=== PATIENT | male | born 1950 | race Caucasian/White ===

== ENCOUNTER 2018-10-08 12:12 | Outpatient (CLI) | payer MEDICARE, OTHER ==
[~2018-10-08] VITALS: Ht 185.4 cm; Wt 92.7 kg
--- NOTE | ~2018-10-08 | HEMODYNAMI ---
PATIENT:EMANI NICOLAS MEDICAL RECORD: [id number] : 52 LOCATION:[facility] ADMISSION DATE: 10/08/18 Generatedon:10/08/201815:56 Patient name: EMANI NICOLAS Patient #: [id number] SSN: DO B: 1950 Date of study: 10/08/2018 Page: Of Hemodynamic Procedure Report Patient Data Patient Demographics Procedure consent was obtained First Name: EMANI Gender: Male Last Name: MARIA ISABEL : 1950 [facility] Initial: L Age: 68 year(s) Patient #: [id number] Race: Unknown Additional ID: [id number] Contact details Address: [address] [place] [address] [address] State: [place] City: [place] Zip code: [address] Past Medical History Allergies: No known allergies Admission Admission Data Admission Date: 10/08/2018 Admission Time: 12:12 Lab Results Lab Result Date: 10/08/2018 Lab Result Time: 0:00 Biochemistry Name Units Result Min Max BUN mg/dl 9 --(*---)-- 7 18 Creatinine mg/dl 1 --(--*-)-- 0.6 1.3 eGFR ml/min 79.24116 *-(----)-- 90 120 NONAFRICAN CBC Name Units Result Min Max Hematocrit % 39.1 -*(----)-- 42 54 Hemoglobin g/dl 13.2 -*(----)-- 13.5 17.5 Procedure Procedure Types Cath Procedure Diagnostic Procedure LHC LHC w/Coronaries Aortic Root Angiography Procedure Description Procedure Date Procedure Date: 10/08/2018 Procedure Start Time: 15:36 Procedure End Time: 15:49 Procedure Staff Name Function Delano Rebolledo MD Performing Physician Willard Greenwood RT Monitor Yoselyn Hurtado RT Scrub hCitra Gaming RN Nurse Procedure Data Cath Procedure Fluoroscopy Diagnostic fluoroscopy Total fluoroscopy Time: 2.6 time: 2.6 min min Diagnostic fluoroscopy Total fluoroscopy dose: 720 dose: 720 mGy mGy Contrast Material Contrast Material Type Amount (ml) Isovue 370 74 Entry Location Entry Primary Successful Side Size Upsize Upsize Entry Closure Succes sful Closure Location (Fr) 1 (Fr) 2 (Fr) Remarks Device Remarks Femoral Right 5 Fr Exoseal artery Diagnostic catheters Device Type Used For End Catheter Placement MULTIPACK JL 4.0 5Fr Left Coronary catheter Angiography MULTIPACK 3DRC 5Fr Right Coronary catheter Angiography DIAGNOSTIC JL 5 5Fr Left Coronary catheter ([id number]) Angiography MULTIPACK Pigtail 5 Fr LV Angiography catheter Procedure Complications No complications Procedure Medications Medication Administration Route Dosage 0.9% NaCl I.V. 100 ml/hr Oxygen etCO2 Nasal cannula 2 l/min Lidocaine 2% added to field 20 Heparin Flush Bag added to field 2 bags (1000units/500ml NS) Versed I.V. 2 mg Fentanyl I.V. 50 mcg Hemodynamics Rest HGB: 13.2 (g/dl) Heart Rate: 0 (bpm) Pressure Samples Time Site Value (mmHg) Purpose Heart Use Rate(bpm) 15:46 LV 129/1,15 EDP 75 Gradients Valve Time Site Site Mean SEP/DFP Peak To Heart Use 1 2 (mmHg) (sec/min) Peak Rate (mmHg) (bpm) Aortic 15:46 LV AO 75 Snapshots Pre Cath Intra NCS Post Cath Vital Signs Time Heart Resp SPO2 etCO2 NIBP (mmHg) Rhythm Pain Sedation Rate (ipm) (%) (mmHg) Status Level (bpm) 15:22:21 76 11 97 33.8 Measuring NSR 0 (11) 10(A) , No pain 15:22:46 74 12 98 36 151/98(134) NSR 0 (11) 10(A) , No pain 15:27:04 70 15 98 24 137/78(111) NSR 0 (11) 10(A) , No pain 15:31:20 67 14 98 21.8 125/75(99) NSR 0 (11) 10(A) , No pain 15:35:36 65 17 98 22.5 133/73(108) NSR 0 (11) 10(A) , No pain 15:39:48 75 16 99 24 120/72(95) NSR 0 (11) 9(A) , No pain 15:43:59 67 16 98 23.3 125/72(103) NSR 0 (11) 9(A) , No pain 15:48:12 73 18 97 27 120/78(97) NSR 0 (11) 10(A) , No pain Medications Time Medication Route Dose Verified Delivered Reason Notes Eff ectiveness by by 15:22:13 0.9% NaCl I.V. 100 Delano Chitra used for ml/hr [employer] training mgr 15:22:20 Oxygen etCO2 2 Delano Chitra used for Nasal l/min [employer] procedure cannula RN 15:22:25 Lidocaine 2% added 20ml Delano Delano for local to vial Amaury Rebolledo MD anesthetic field 15:22:29 Heparin Flush added 2 Delano Delano used for Bag to bags Amaury Rebolledo MD procedure (1000units/500ml field NS) 15:35:20 Versed I.V. 2 mg Delano Chitra for [employer] sedation RN 15:35:25 Fentanyl I.V. 50 Delano Chitra for mcg [employer] sedation neuro urologist Log Time Note 15:11:21 Willard Greenwood RT(R) sent for patient. Start room use. 15:16:26 Time tracking: Regular hours (M-F 7:00 - 5:00) 15:16:30 Plan of Care:Hemodynamics will remain stable., Cardiac rhythm will remain stable., Comfort level will be maintained., Respiratory function will remain adequate., Patient/ family verbilizes understanding of procedure., Procedure tolerated without complication., Recovers from procedure without complications.. 15:16:33 Procedure Status Elective Heart Cath (OP). 15:16:34 Signed procedure consent form obtained from patient. 15:16:39 Patient received from Pre/Post Procedure Room to CCL 1 Alert and oriented. Tansferred to table in Supine position. 15:16:40 Warm blankets applied, and leyla hugger turned on for patient comfort. 15:16:40 Correct patient and procedure confirmed by team. 15:16:40 ECG and BP/O2 sat monitors applied to patient. 15:20:31 Vital chart was started 15:22:13 0.9% NaCl 100 ml/hr I.V. was administered by Chitra Gaming RN; used for procedure; 15:22:20 Oxygen 2 l/min etCO2 Nasal cannula was administered by Chitra Gaming RN; used for procedure; 15:22:25 Lidocaine 2% 20ml vial added to field was administered by Delano Rebolledo MD; for local anesthetic; 15::29 Heparin Flush Bag (1000units/500ml NS) 2 bags added to field was administered by Delano Rebolledo MD; used for procedure; 15:25:25 Baseline sample Acquired. 15:25:27 Rhythm: sinus rhythm 15:25:29 Full Disclosure recording started 15:25:45 H&P Date Dictated: 10/04/2018 Within 30 days and on chart., H&P Addendum completed by physician on day of procedure. (MUST COMPLETE FOR ALL OUTPATIENTS). 15:25:47 Pre-procedure instructions explained to patient. 15:25:47 Pre-op teaching completed and patient verbalized understanding. 15:25:51 Family in patients room. 15:25:52 Patient NPO since Midnight. 15:25:58 Patient allergic to No known allergies 15:26:01 Is the patient allergic to Iodine/contrast media? No. 15:26:05 Is patient on blood thinner?No 15:26:07 Patient diabetic? No. 15:26:09 ----Pre-sedation anethsthesia assessment.---- 15:26:12 Previous problem with sedation/anesthesia? No ? 15:26:14 Snore? Yes 15:26:15 Sleep apnea? No 15:26:16 Deviated septum? No 15:26:18 Opens mouth fully? Yes 15:26:21 Sticks out tongue? Yes 15:26:23 Airway obstruction? No ? 15:26:28 Dentures? Yes in tight 15:26:34 Pre procedure: right dorsailis pedis pulse 2+ Normal; easily identifiable; not easily obliterated 15:26:37 Modified Jeremi's test Ulnar > 7 seconds. 15:26:41 Patient pain scale 0/10 ?. 15:26:54 IV patent on arrival in left forearm with 0.9% NaCl at [facility]. 15:27:10 Lab results completed and on chart. 15:27:32 Right groin area was prepped with chlora-prep and draped in sterile fashion 15:27:33 Alarms reviewed by R. N. 15:27:34 Sharps counted by scrub and verified by R.N. 15:27:36 Physician arrived 15:27:40 Use device set Femoral Dx 15:27:40 ACIST Syringe (75878) opened to sterile field. 15:27:41 Bag Decanter (2002) opened to sterile field. 15:27:41 Medline Cath Pack ([id number]) opened to sterile field. 15:27:43 ACIST Hand Control (57239) opened to sterile field. 15:27:43 ACIST Manifold (75080) opened to sterile field. 15:27:44 DIAGNOSTIC Multipack 5Fr catheter set ([id number]) opened to sterile field. 15:27:47 SHEATH 5FR Welsh ([id number]) opened to sterile field. 15:27:47 EMERALD Guide Wire (073-635) opened to sterile field. 15:30:26 Baseline sample Acquired. 15:33:18 --------ALL STOP TIME OUT------ 15:33:19 Final Timeout: patient, procedure, and site verified with staff and physician. All members of the team are in agreement. 15:33:21 Right groin site verified by team. 15:33:25 Fire Safety Assessment: A--An alcohol-based skin anteseptic being used preoperatively., C--Open oxygen or nitrous oxide is being used., D--An ESU, laser, or fiber-optic light is being used. 15:33:28 Physical assessment completed. ASA score P 2 - A patient with mild systemic disease as per Delano Rebolledo MD. 15:34:16 2) 60-89 Mildly reduced kidney function, and other findings (as for stage 1) point to kidney disease. 15:35:03 Maximum allowable contrast does (3.7 X eGFR X 0.75)220 ml. 15:35:09 Sedation plan: IV Moderate Sedation Medication:Versed, Fentanyl 15:35:20 Versed 2 mg I.V. was administered by Chitra Gaming RN; for sedation; 15:35:25 Fentanyl 50 mcg I.V. was administered by Chitra Gaming RN; for sedation; 15:36:34 Procedure started. 15:36:42 Local anesthetic to right femoral artery with Lidocaine 2% by Delano Rebolledo MD.INITIAL ACCESS ONLY 15:36:50 A 5 Fr sheath was inserted into the Right Femoral artery 15:37:18 A MULTIPACK JL 4.0 5Fr catheter was advanced over the wire and used for Left Coronary Angiography. 15:38:30 Catheter removed. 15:38:43 A MULTIPACK 3DRC 5Fr catheter was advanced over the wire and used for Right Coronary Angiography. 15:38:47 RCA angiography performed. 15:39:23 Catheter removed. 15:39:43 A DIAGNOSTIC JL 5 5Fr catheter ([id number]) was advanced over the wire and used for Left Coronary Angiography. 15:39:46 LCA angiography performed. 15:44:46 Catheter removed. 15:44:58 A MULTIPACK Pigtail 5 Fr catheter was advanced over the wire and used for LV Angiography. 15:45:51 LV hemodynamics recorded. 15:45:53 LV angiography performed. 15:45:57 LV gram done using VICK 15:46:22 EF : 50 % 15:46:39 Catheter removed. 15:46:47 Aortic Root visualized 15:46:57 Procedure type changed to Cath procedure, Diagnostic procedure, LHC, LHC w/Coronaries, Aortic Root Angiography 15:47:33 EXOSEAL 5Fr (EX500) opened to sterile field. 15:47:51 Sheath removed intact; hemostasis achieved with Exoseal to the Right Femoral artery. 15:48:00 Procedure ended.(Physican Out) 15:48:11 Fluoroscopy time 02.60 minutes. 15:48:20 Fluoroscopy dose: 720 mGy 15:48:20 Flurop Dose total: 720 15:48:25 Contrast amount:Isovue 370 74ml. 15:48:30 Maximum allowable dose exceeded? No. 15:48:31 Sharps counted by scrub and verified by R.N. 15:48:32 Insertion/operative site no bleeding no hematoma. 15:48:35 Post-op/insertion site Right Femoral artery dressed using a 4 x 4 and Tegaderm. 15:48:38 Post right femoral artery:stable 15:48:40 Post Procedure Pulses reassessed and unchanged 15:48:42 Post procedure: right dorsailis pedis pulse 2+ Normal; easily identifiable; not easily obliterated. 15:48:45 Post procedure rhythm: sinus rhythm 15:48:46 Post procedure instruction explained to patient.Patient verbalizes understanding. 15:48:47 Procedure and supply charges have been captured, reviewed, submitted and are correct. 15:49:04 Procedure Complication : No complications 15:49:06 Vital chart was stopped 15:49:07 See physician's report for complete and final results. 15:49:10 Report given to Pre/Post Procedure Room. 15:49:15 Patient transfered to Pre/Post Procedure Room with Stretcher. 15:49:17 Procedure ended. 15:49:17 Full Disclosure recording stopped 15:49:20 End room use (Document Last) Device Usage Item Name Manufacture Quantity Catalog Hospital Part Current Minimal L ot# / Number Charge Number Stock Stock Serial# Code ACIST Acist 1 49682 899074 966628 858445 20 Syringe Medical (62362) Systems Inc Bag Microtek 1 2001S 960608 71367 374973 5 Decanter Medical Inc. (2001S) Medline Medline 1 [id number] 181950 46847 308938 5 Cath Pack ([id number]) ACIST Hand Acist 1 25219 613453 921554 955654 5 Control Medical (33246) Systems Inc ACIST Acist 1 49778 280287 654060 240725 5 Manifold Medical (04983) Systems Inc DIAGNOSTIC Cardinal 1 AQ9811 923711 57186 194063 30 Multipack Health 5Fr catheter set (MS8468) SHEATH 5FR Terumo 1 YKH295 104149 226909 568161 5 Welsh (MUR993) EMERALD Cardinal 1 502-455 761173 922372 892314 5 Guide Wire Health (502455) MULTIPACK Cardinal 1 769154 5 JL 4.0 5Fr Health catheter MULTIPACK Cardinal 1 973099 5 3DRC 5Fr Health catheter DIAGNOSTIC Cardinal 1 [id number] 521663 280683 051803 5 JL 5 5Fr Health catheter (153478R) MULTIPACK Cardinal 1 533747 5 Pigtail 5 Health Fr catheter EXOSEAL 5Fr Cardinal 1 EX500 622029 765793 317530 10 (EX500) Health Signature Audit Ivor Stage Time Signature Unsigned Intra-Procedure 10/08/2018 Willard Greenwood RT(R) 3:56:14 PM Signatures Performing Physician : Signature : Delano Rebolledo MD Date : Time : Monitor : Willard Suit RT Signature : Date : Time : Nurse : Chitra Gaming RN Signature : Date : Time : [address] [place] [address]
[2018-10-08] MEDS ORDERED: TOPROL XL25 MG PO (12:31)
[2018-10-08] MEDS ORDERED: LIPITOR10 MG PO (12:31)
[2018-10-08] MEDS ORDERED: NITROQUICK0.4 MG SL (12:31)
[2018-10-08 12:44] VITALS: BP 172/76; Ht 185.4 cm; Wt 92.7 kg
[2018-10-08 12:55] LABS: BASOPHILS 0.4 % (0-2); EOSINOPHILS 2.4 % (0-7); HEMATOCRIT 39.1 % (42.0-54.0); HEMOGLOBIN 13.2 g/dL (13.5-17.5); IMMATURE GRANULOCYTES 0.4 % (0-5); LYMPHOCYTES 23.8 % (15-50); MCH 28.9 pg (26.0-34.0); MCHC 33.8 g/dL (31.0-37.0); MCV 85.6 fL (80.0-100.0); MEAN PLATELET VOLUME 9.7 fL (7.4-10.4); MONOCYTES 7.5 % (2-11); NEUTROPHILS 65.5 % (40-80); PLATELET COUNT 249 10x3/uL (130-400); RBC 4.57 10x6/uL (4.20-6.10); RDW 13.5 % (11.5-14.5); WBC 9.5 10x3/uL (4.8-10.8)
[2018-10-08 13:37] LABS: CALC OSMOLALITY 281 mosm/kg (275-300); CALCIUM 8.1 mg/dL (8.5-10.1); CARBON DIOXIDE 32.7 mmol/L (21.0-32.0); CHLORIDE - SERUM 102 mmol/L (98-107); GLUCOSE 96 mg/dL (74-106); SODIUM 142 mmol/L (136-145); UREA NITROGEN 9 mg/dL (7-18); eGFR NON AFRICAN AMERICAN 79 mL/min (90-120)
[2018-10-08 13:41] LABS: POTASSIUM - SERUM 2.8 mmol/L (3.5-5.1)
--- NOTE | 2018-10-08 13:57 | NUR ---
40 MEQ POTASSIUM GIVEN ORALLY PER ORDERS
--- NOTE | 2018-10-08 16:00 | NUR ---
PT RECEIVED VIA STRETCHER FROM CLINICAL TRIALS MANAGER FOR RECOVERY. PT AWAKE BUT DROWSY. 5FR EXOCELE TO R GROIN, DRESSING CDI NO BLEEDING OR SWELLING NOTED. LEG PINK AND WARM, PEDAL PULSES PALPABLE. PT INSTRUCTED TO KEEP HEAD ON PILLOW AND LEG STRAIGHT, HE VERBALIZED UNDERSTANDING. IV PATENT INFSUSING VIA ORDERS. HR NSR RATE 70, BP 118/76, 02 SAT 100 ON 2L/NC. DR PONCE AT BEDSIDE, DISCUSSED WITH PT AND PROCEDURE RESULTS AND PLAN OF CARE. PT DENIES PAIN OR DISCOMFORT AT THIS TIME
--- NOTE | 2018-10-08 16:29 | NUR ---
PT RESTING COMFORTABLY W FAMILY AT BEDSIDE. GROIN SOFT TO TOUCH, NO BLEEDING OR HEMATOMA NOTED. DRESSING REMAINS CDI. PEDAL PULSES PALPABLE. CALL LIGHT IN REACH. VSS.
--- NOTE | 2018-10-08 16:33 | NUR ---
REPORT GIVEN TO Rocio NUNEZ RN TO ASSUME CARE
--- NOTE | 2018-10-08 16:45 | NUR ---
PT RESTING COMFORTABLY. RIGHT GROIN DRESSING C/D/I. NO S/S OF HEMATOMA NOTED. FAMILY AT BEDSIDE. CALL LIGHT WITHIN REACH.
--- NOTE | 2018-10-08 17:00 | NUR ---
PT'S HEAD OF BED INC TO 30 DEGREES. TOLERATED WELL. RIGHT GROIN DRESSING C/D/I. NO S/S OF HEMATOMA NOTED.
--- NOTE | 2018-10-08 17:30 | NUR ---
RIGHT GROIN DRESSING C/D/I. NO S/S OF HEMATOMA NOTED. PT REFUSED SANDWICH TRAY. DENIES NAUSEA, BUT IS WANTING TO GO OUT TO EAT WHEN HE LEAVES HERE.
--- NOTE | 2018-10-08 17:35 | NUR ---
LEFT FA PIV D/C'D WITH CATH TIP INTACT. PT TOLERATED WELL. VSS. RIGHT GROIN DRESSING C/D/I. NO S/S OF HEMATOMA NOTED.
--- NOTE | 2018-10-08 17:45 | NUR ---
RIGHT GROIN DRESSING C/D/I. NO S/S OF HEMATOMA NOTED. DISCUSSED DISCHARGE INSTRUCTIONS WITH PT AND PT'S FAMILY. THEY VOICED UNDERSTANDING. PT UP AND DRESSED.
--- NOTE | 2018-10-08 17:50 | NUR ---
PT AMUBLATED TO RESTROOM. VOIDED WITHOUT DIFFICULTY. PT TAKEN TO VEHICLE BY WHEELCHAIR. NO S/S OF DISTRESS NOTED. ALL BELONGINGS AND PAPERWORK IN HAND.
== END 2018-10-08 17:50 | disposition home or self-care (01) ==
LOC: D.CATH 12:12
PROVIDERS: ATTEND Internal Medicine Cardiovascular Disease
DX: I25.119 Atherosclerotic heart disease of native coronary artery with unspecified angina pectoris (principal); I77.810 Thoracic aortic ectasia; Z01.812 Encounter for preprocedural laboratory examination

== ENCOUNTER 2018-10-11 13:30 | Inpatient (IN) | payer MEDICARE, OTHER ==
[~2018-10-11] VITALS: Ht 185.4 cm; Wt 90.6 kg
[~2018-10-11 13:30] MED LIST: LIPITOR10 MG PO; NITROQUICK0.4 MG SL; TOPROL XL25 MG PO
[2018-10-11 16:41] LABS: BASOPHILS 0.7 % (0-2); EOSINOPHILS 2.7 % (0-7); HEMOGLOBIN 13.4 g/dL (13.5-17.5); IMMATURE GRANULOCYTES 0.3 % (0-5); MCH 28.3 pg (26.0-34.0); MCHC 32.7 g/dL (31.0-37.0); MCV 86.7 fL (80.0-100.0); MEAN PLATELET VOLUME 9.7 fL (7.4-10.4); MONOCYTES 7.1 % (2-11); NEUTROPHILS 71.2 % (40-80); PLATELET COUNT 272 10x3/uL (130-400); RBC 4.73 10x6/uL (4.20-6.10); RDW 13.5 % (11.5-14.5)
[2018-10-11 16:50] LABS: APTT 30.3 SECONDS (22.8-39.4); INR 1.09 (0.85-1.17); PROTIME 13.6 SECONDS (11.6-15.0)
[2018-10-11 16:54] LABS: APPEARANCE CLEAR (CLEAR); BILIRUBIN NEGATIVE (NEGATIVE); COLOR YELLOW (YELLOW); GLUCOSE NEGATIVE (NEGATIVE); KETONE NEGATIVE (NEGATIVE); NITRITE NEGATIVE (NEGATIVE); PROTEIN NEGATIVE (NEGATIVE); UROBILINOGEN NORMAL (NORMAL)
[2018-10-11 17:10] LABS: ALBUMIN 3.1 g/dL (3.4-5.0); ALKALINE PHOSPHATASE 93 U/L (46-116); ALT (SGPT) 12 U/L (10-68); CALC OSMOLALITY 280 mosm/kg (275-300); CALCIUM 8.7 mg/dL (8.5-10.1); CARBON DIOXIDE 33.7 mmol/L (21.0-32.0); CHLORIDE - SERUM 101 mmol/L (98-107); CHOLESTEROL, TOTAL 162 mg/dL (0-200); GLUCOSE 107 mg/dL (74-106); PHOSPHOROUS 4.2 mg/dL (2.5-4.9); POTASSIUM - SERUM 3.2 mmol/L (3.5-5.1); PROTEIN - SERUM 7.5 g/dL (6.4-8.2); SODIUM 141 mmol/L (136-145); T4 THYROXIN - FREE 1.04 ng/dL (0.76-1.46); THYROID STIMULATING HORMONE 2.59 uIU/mL (0.36-3.74); UREA NITROGEN 12 mg/dL (7-18); URIC ACID 2.9 mg/dL (2.6-7.2); eGFR NON AFRICAN AMERICAN 79 mL/min (90-120)
[2018-10-14] MEDS ORDERED: BAYER CHEWABLE81 MG PO (05:55)
[2018-10-14 06:03] VITALS: BP 142/76; BMI 26.5
[2018-10-17] VITALS (55 sets, daily range): BP systolic 86–150; BP diastolic 39–77; BMI 26.5; BMI 26.4
--- NOTE | 2018-10-17 13:45 | NUR ---
PT ARRIVED IN THE UNIT. PT SEDATED AND ON THE VENTILATOR. 8.0 ETT 24 AT THE LIP. RIGHT IJ CVL NOTED. SEE IV FLOW SHEET FOR GTTS. MIDLINE CHEST DRESSING C/D/I. SUBSTERNAL DRESSING C/D/I WITH TPM WIRES COILED, X2 CT Y'D TOGETHER LABLED P, CT X1 LABLED "A" AND A LEFT AND RIGHT CHELI DRAIN COMPRESSED. ALL NOTED TO HAVE BLOODY DRAINAGE. LEFT RADIAL AGUILA NOTED WITH THE WRIST PROTECTOR ON. CAP REFILL <3 SECONDS. FC NOTED WITH CLEAR, YELLOW URINE. RLE HARVEST STIE NOTED. DRESSING C/D/I. BLE PULSES PALPABLE. VSS AT THIS TIME. NSR ON THE MONITOR. WILL CONT POC.
--- NOTE | 2018-10-17 15:56 | NUR ---
PT AWAKE AND ANSWERING YES AND NO QUESTIONS. PT ABLE TO MOVE EXTRIMITIES BUT IS STILL DROWSEY FROM ANESTESIA. WILL CONT MONITOR.
--- NOTE | 2018-10-17 16:40 | NUR ---
ALIREZA OBTAINED. K TREATED PER ORDERS. SEE MAR.
--- NOTE | 2018-10-17 16:46 | NUR ---
DR FONTANEZ AT THE PTS BEDSIDE. NO NEW ORDERS AT THIS TIME.
--- NOTE | 2018-10-17 16:51 | OP ---
PATIENT NAME: EMANI NICOLAS MEDICAL RECORD: [id number] :52 LOCATION:D.CVI [id number] ADMISSION DATE:10/17/18 SURGEON: VITO FONTANEZ MD DATE OF OPERATION: 10/17/2018 SURGEON: Vito Fontanez MD KINESIOLOGY PROFESSOR: Bertrand Adams OPERATION PERFORMED: 1. Coronary artery bypass graft times 3 (left internal mammary artery to LAD, free right internal mammary artery from aorta to first obtuse marginal, and reverse saphenous vein graft from aorta to posterior descending artery), 2 arterial and 1 venous graft. 2. Endoscopic saphenous vein harvest. PREOPERATIVE DIAGNOSIS: Coronary artery disease. POSTOPERATIVE DIAGNOSIS: Coronary artery disease. ANESTHESIA: General endotracheal anesthesia. ESTIMATED BLOOD LOSS: Total cardiopulmonary bypass with Cell Saver retransfusion. COMPLICATIONS: None. SPECIMENS: Internal mammary artery lymph node. CONDITION: Stable. DISPOSITION: CV ICU. OPERATIVE FINDINGS: 1. Transesophageal echocardiography was normal and it was a normal-appearing heart. 2. All vessels with severe distal disease. 3. Good quality greater saphenous vein, harvested endoscopically from the right thigh. 4. Free right internal mammary artery as a skeletonized graft. 5. Pedicle left internal mammary artery to a severely diseased LAD at the only site available for anastomosis. Good Doppler signals after anastomosis and after reversal of heparin. 6. Ascending aortic aneurysm 4.5 cm as seen on the preop CT scan. OPERATIVE INDICATION: Coronary artery disease. OPERATIVE SUMMARY IN DETAIL: The patient was brought to the operating suite. General anesthesia was obtained. The patient was prepped and draped. Greater saphenous vein was harvested endoscopically from the right thigh. Side branches were divided with electrocautery. Vessel was ligated proximally and distally, and removed. Side branches were tied. Small sites were oversewn. Leg was irrigated, closed in 2 layers, and wrapped with elastic wrap. Median sternotomy incision was made. Subcutaneous tissue was divided by OPERATIVE REPORT [id number] EMANI NICOLAS electrocautery. Sternum was divided with a saw. Left hemisternum was elevated. Left pleural cavity was entered. Left internal mammary vein was taken as a pedicle graft. The right hemisternum was elevated. Right pleural cavity was entered. The skeletonized takedown of the right internal mammary was performed. Heparin was given. After the heparin had circulated, inflow was divided with a clamp and distally with clips. Vessel was removed, cannulated, perfused with papaverine, and maintained in a papaverine-soaked sponge at the time of use. Proximally, it was oversewn and clipped. Hemostasis was ensured. Sternal retractor was placed. Pericardium was opened. Aorta was cannulated. The patient had heparin resistance and additional heparin was given and later one unit of FFP. After activated clotting time was appropriately elevated, the patient was placed on cardiopulmonary bypass. Internal mammary was clipped distally and made ready for anastomosis. Sites for distal anastomoses were selected. The patient was cooled. Antegrade cardioplegia cannula was inserted. Cross-clamp was placed. Cardioplegia was given antegrade. This was repeated after a 20-minute interval including down the completed vein graft. Distal anastomosis was performed in standard technique and proximal anastomosis with single cross-clamp technique, deairing the root through the vein graft and then tying it down with restoring flow. Proximal and distal anastomotic sites were inspected for bleeding. The patient was fully rewarmed, weaned from cardiopulmonary bypass in sinus rhythm, and was stable. The patient was decannulated. Cannula sites were oversewn. Protamine was given. Thorough irrigation was undertaken. Grafts lay appropriately. The drains were placed in mediastinum and both pleural cavities. Ventricular pacing wires were placed. Pericardial fat was loosely reapproximated. Both chests were evacuated. Internal mammary harvest sites were inspected for bleeding. Sternum was closed with wires. Fascia was closed. Subcutaneous tissue was closed. Skin was closed. Dermabond was placed. Needle and sponge counts were reported as correct. The patient was taken to the ICU in stable condition. TRANSINT:[id number] Voice Confirmation ID: [id number] DOCUMENT ID: [id number] VITO FONTANEZ MD at 1651 CC: RUTH PONCE M.D. [id number] DICTATION DATE: 10/17/18 1330 PLATFORM ENGINEER: 10/17/18 1435 [place] [address]
--- NOTE | 2018-10-17 17:17 | NUR ---
DR FONTANEZ NOTIFIED AND UPDATED. OK TO EXTUBATE.
--- NOTE | 2018-10-17 17:31 | NUR ---
12/26 PAIN. MORPHINE GIVEN. SEE TCDB.
--- NOTE | 2018-10-17 17:31 | NUR ---
PT EXTUBATED WITH NO ISSUES. NC PLACED ON THE PT AT 4L. PT BREATHING SHALLOW. VERY WEAK COUGH.
--- NOTE | 2018-10-17 17:56 | NUR ---
INSTRUCTED THE PT TO USE HIS IS. PT ONLY ABLE TO PULL ABOUT 250 OF HIS IS. VERY WEAK COUGH NOTED. WILL CONT MONIOTOR/POC.
[2018-10-17 21:16] LABS: MAGNESIUM - SERUM 1.8 mg/dL (1.8-2.4); POTASSIUM - SERUM 3.6 mmol/L (3.5-5.1)
--- NOTE | 2018-10-17 21:49 | NUR ---
1900 REPORT RECEIVED CARE ASSUMED ASSESSMENT DONE SEE FLOW SHEET VSS. LABEL BP NOTED. PT REQUIRES INTERMITTEN NITRO AND VASO NEEDED TO CONTROL BP WITHIN IN PARAMETER. L AC PIV REMOVED. QUESTIONS ANSWERED TEACHING PROVIDED. ALL EXTREMITIES ELEVATED WITH PILLOW. ICE CHIPS PROVIED. 1999 WATER PROVIDED IN SMALL SIPS. NO SIGNS OF ACUTE DISTRESS NOTED. 2044 MED GIVEN PER MAY. WILL CONTINUE TO MONITOR. UNABLE TO GIVE ALL 2100 MEDS PT STILL NOT FULLY AWAKE. 2148 OXYGEN TITRATED PER PROTOCOL. TO 2LNC O2 SATURATION ABOVE 92%.
--- NOTE | 2018-10-17 22:00 | NUR ---
MEDS GIVEN PER MAY. VSS. PT DANGLED AT BEDSIDE. NO SINGS OF ACUTE DISTRESS NOTED. PT STATES HE FEELS GREAT DANGLING AT BEDSIDE.
--- NOTE | 2018-10-17 23:00 | NUR ---
REASSESSMENT DONE SEE FLOW SHEET VSS.
[2018-10-18] VITALS (65 sets, daily range): BP systolic 71–167; BP diastolic 40–79; Ht 185.4 cm; Wt 90.6 kg
--- NOTE | 2018-10-18 01:02 | NUR ---
OXYGEN WEANED OFF O2 SAT 94%.
[2018-10-18 02:22] LABS: MAGNESIUM - SERUM 1.8 mg/dL (1.8-2.4); POTASSIUM - SERUM 4.1 mmol/L (3.5-5.1)
--- NOTE | 2018-10-18 02:39 | NUR ---
DANGLED PT AT BEDSIDE, TOLERATED WELL, NO SIGNS OF ACUTE DISTRESS NOTED. VITAL SIGNS STABLE, INCENTIVE SPIROMETER REINFORCED.
[2018-10-18 06:03] LABS: HEMATOCRIT 32.8 % (42.0-54.0); MCH 28.5 pg (26.0-34.0); MCHC 33.5 g/dL (31.0-37.0); MEAN PLATELET VOLUME 9.6 fL (7.4-10.4); RBC 3.86 10x6/uL (4.20-6.10); RDW 14.1 % (11.5-14.5); WBC 13.8 10x3/uL (4.8-10.8)
[2018-10-18 06:18] LABS: ALBUMIN 2.3 g/dL (3.4-5.0); ALKALINE PHOSPHATASE 64 U/L (46-116); ALT (SGPT) 10 U/L (10-68); BILIRUBIN - TOTAL 0.48 mg/dL (0.2-1.3); CALC OSMOLALITY 281 mosm/kg (275-300); CALCIUM 7.4 mg/dL (8.5-10.1); CARBON DIOXIDE 24.4 mmol/L (21.0-32.0); CHLORIDE - SERUM 106 mmol/L (98-107); CREATININE - SERUM 0.9 mg/dL (0.6-1.3); GLUCOSE 169 mg/dL (74-106); POTASSIUM - SERUM 3.9 mmol/L (3.5-5.1); PROTEIN - SERUM 5.5 g/dL (6.4-8.2); SODIUM 140 mmol/L (136-145); UREA NITROGEN 9 mg/dL (7-18); eGFR NON AFRICAN AMERICAN 89 mL/min (90-120)
--- NOTE | 2018-10-18 12:00 | NUR ---
DR. FONTANEZ HERE. NEW ORDERS REC'D. MEDISTINAL CHEST TUBES DC'D BY DR. FONTANEZ.
--- NOTE | 2018-10-18 12:19 | MORECARE ---
CASE MANAGEMENT DISCHARGE SUMMARY PATIENT: EMANI NICOLAS JOSE UNIT: [id number] ADM DATE: 10/17/18 AGE: 68 : 51 SEX: M ROOM/BED: [facility] AUTHOR: DALTON CASON PHYSICIAN: REFERRING PHYSICIAN: MICHAEL FONTANEZ MD DATE OF SERVICE: 10/18/18 Discharge Plan Patient Name: EMANI NICOLAS Facility: [facility]:[place] : 1950 Planned Disposition: Home Anticipated Discharge Date: Discharge Date: Expected LOS: Initial Reviewer: [email or web address] Initial Review Date: 10/18/2018 Generated: 10/18/18 1:19 pm DCPIA - Discharge Planning Initial Assessment Updated by [email or web address]: Chelita Bautista on 10/18/18 12:15 pm * Is the patient Alert and Oriented? Yes * How many steps to enter\exit or inside your home? RAMP * [facility] * Pharmacy [facility] * Preadmission Environment Home with Family * ADLs Independent * Other Equipment WALKER, W/C * List name and contact numbers for known caregivers / representatives who currently or will assist patient after discharge: LUKE NICOLAS - - [phone] * Verbal permission to speak to the caregivers and representatives has been obtained from the patient. Yes * Community resources currently utilized None * Additional services required to return to the preadmission environment? No * Can the patient safely return to the preadmission environment? Yes * Has this patient been hospitalized within the prior 30 days at any hospital? No Patient Name: EMANI NICOLAS Page [id number] at 1219 All edits/amendments must be made on the electronic document DICTATION DATE: 10/18/18 1219 BUTCHERETTE: CHAPARRITA 10/18/18 1219 RPT#: [id number] DC DATE: STATUS: ADM IN [facility] [place] [address] END OF REPORT
--- NOTE | 2018-10-18 12:46 | NUR ---
CHEST TUBES DCD BY DR FONTANEZ. PT PASTORA MELISSA.
--- NOTE | 2018-10-18 12:47 | NUR ---
INSULIN GTT AND PRESSORS OFF. VSS. FSBS Q6H SS STARTED.
--- NOTE | 2018-10-18 14:19 | NUR ---
L RAD A LINE DCD ORDERED BY DR FONTANEZ. NIBP R ARM SET.
--- NOTE | 2018-10-18 17:22 | NUR ---
PT SITTING UP IN CHAIR. CO NAUSEA. ZOFRAN GIVEN.
--- NOTE | 2018-10-18 19:00 | NUR ---
REPORT RECEIVED, SHIFT ASSESSMENT COMPLETE PER FLOW SHEET, PT AAOx4 DENIES PAIN OR NEEDS AT THIS TIME, NSR ON CM, VSS, REPOSITIONED FOR COMFORT, WILL CONTINUE TO MONITOR
--- NOTE | 2018-10-18 23:10 | NUR ---
PT SBP DECREASED 84/49, EFRAIN STARTED PER MAY/ORDERS,SEE FLOW SHEET FOR FURTHER PT AAOx4, WILL CONTINUE TO MONITOR
[2018-10-19] VITALS (50 sets, daily range): BP systolic 75–121; BP diastolic 45–73
[2018-10-19 05:47] LABS: HEMATOCRIT 31.1 % (42.0-54.0); HEMOGLOBIN 10.3 g/dL (13.5-17.5); MCH 28.8 pg (26.0-34.0); MCHC 33.1 g/dL (31.0-37.0); MCV 86.9 fL (80.0-100.0); RBC 3.58 10x6/uL (4.20-6.10); RDW 14.3 % (11.5-14.5)
[2018-10-19 06:13] LABS: ALBUMIN 2.1 g/dL (3.4-5.0); ALKALINE PHOSPHATASE 68 U/L (46-116); ALT (SGPT) 9 U/L (10-68); BILIRUBIN - TOTAL 0.74 mg/dL (0.2-1.3); CALC OSMOLALITY 279 mosm/kg (275-300); CALCIUM 7.6 mg/dL (8.5-10.1); CARBON DIOXIDE 29.9 mmol/L (21.0-32.0); CHLORIDE - SERUM 104 mmol/L (98-107); CREATININE - SERUM 0.9 mg/dL (0.6-1.3); GLUCOSE 122 mg/dL (74-106); POTASSIUM - SERUM 3.8 mmol/L (3.5-5.1); PROTEIN - SERUM 5.6 g/dL (6.4-8.2); SODIUM 140 mmol/L (136-145); UREA NITROGEN 12 mg/dL (7-18); eGFR NON AFRICAN AMERICAN 89 mL/min (90-120)
[2018-10-20] VITALS (20 sets, daily range): BP systolic 82–150; BP diastolic 47–80
[2018-10-20 05:40] LABS: HEMATOCRIT 29.9 % (42.0-54.0); HEMOGLOBIN 9.9 g/dL (13.5-17.5); MCH 28.9 pg (26.0-34.0); MCHC 33.1 g/dL (31.0-37.0); MCV 87.2 fL (80.0-100.0); MEAN PLATELET VOLUME 9.5 fL (7.4-10.4); RBC 3.43 10x6/uL (4.20-6.10); RDW 14.4 % (11.5-14.5)
[2018-10-20 05:44] LABS: WBC 8.3 10x3/uL (4.8-10.8)
[2018-10-20 06:07] LABS: ALBUMIN 2.1 g/dL (3.4-5.0); ALKALINE PHOSPHATASE 71 U/L (46-116); BILIRUBIN - TOTAL 0.74 mg/dL (0.2-1.3); CALC OSMOLALITY 278 mosm/kg (275-300); CALCIUM 7.8 mg/dL (8.5-10.1); CARBON DIOXIDE 31.4 mmol/L (21.0-32.0); CHLORIDE - SERUM 102 mmol/L (98-107); CREATININE - SERUM 0.9 mg/dL (0.6-1.3); GLUCOSE 117 mg/dL (74-106); POTASSIUM - SERUM 3.5 mmol/L (3.5-5.1); PROTEIN - SERUM 5.7 g/dL (6.4-8.2); SODIUM 140 mmol/L (136-145); UREA NITROGEN 11 mg/dL (7-18); eGFR NON AFRICAN AMERICAN 89 mL/min (90-120)
[2018-10-20 06:19] LABS: ALT (SGPT) 9 U/L (10-68)
--- NOTE | 2018-10-20 06:49 | NUR ---
SHIFT ASSESSMENT COMPLETE. ALERT AND ORIENTED X4. RESPIRATIONS EVEN AND UNLABORED. VS STABLE. NO VISUAL CUES OF DISTRESS NOTED. WILL CONTINUE TO MONITOR.
--- NOTE | 2018-10-20 10:56 | NUR ---
0930-AMBULATED ON ROOM AIR-TOLERATED WELL
--- NOTE | 2018-10-20 17:31 | NUR ---
AMBULATED TO RESTROOM WITH OUT DIFFICULTY-PRODUCTIVE COUGH-SEE EMAR FOR PAIN MANAGEMENT
--- NOTE | 2018-10-20 19:00 | NUR ---
BEDSIDE SHIFT REPORT GIVEN BY DEPARTING RN. PT OOB IN CHAIR. AAOX4. PERRLA. C/O PAIN ONLY WHEN COUGHING. VSS. CHELI DRAINS X2 NOTED WITH BULBS COMPRESSED. ASSESSMENT COMPLETE. SEE FS FOR DETAILS. SAFETY MEASURES IN PLACE. CBIR.
--- NOTE | 2018-10-20 20:04 | NUR ---
FAMILY AT BEDSIDE. UPDATE GIVEN. ALL QUESTIONS ANSWERED.
--- NOTE | 2018-10-20 21:14 | NUR ---
BACK TO BED FROM CHAIR. STANDBY ASSIST USED. TOLERATED VERY WELL.
--- NOTE | 2018-10-20 21:25 | NUR ---
HS MEDS GIVEN. DAUGHTER AT BEDSIDE TO HAND PT ONE PILL AT A TIME. SWALLOWED WITHOUT DIFFICULTY.
--- NOTE | 2018-10-20 21:36 | NUR ---
PRN PAIN MED GIVEN. SEE MAR FOR DETAILS.
--- NOTE | 2018-10-20 23:45 | NUR ---
REASSESSMENT COMPLETE. NO NEW CHANGES NOTED IN PT CONDITION. VSS. NO SS OF DISTRESS. SAFETY MEASURES IN PLACE. CBIR.
[2018-10-21] VITALS (20 sets, daily range): BP systolic 93–121; BP diastolic 46–69
--- NOTE | 2018-10-21 03:37 | NUR ---
REASSESSMENT COMPLETE. PT ASLEEP SHOWING NO SS OF DISTRESS. VSS. DENIES ANY PAIN OR NEEDS AT THIS TIME. SAFETY MEASURES IN PLACE. CBIR.
--- NOTE | 2018-10-21 04:00 | NUR ---
DAUGHTER AT BEDSIDE. UPDATE GIVEN. ALL QUESTIONS ANSWERED.
--- NOTE | 2018-10-21 05:49 | NUR ---
CHG BATH GIVEN. LINENS CHANGED. HAIR SHAMPOOED. TOLERATED VERY WELL.
[2018-10-21 06:39] LABS: HEMATOCRIT 31.1 % (42.0-54.0); MCHC 32.2 g/dL (31.0-37.0); MCV 87.1 fL (80.0-100.0); MEAN PLATELET VOLUME 9.4 fL (7.4-10.4); RBC 3.57 10x6/uL (4.20-6.10); RDW 14.2 % (11.5-14.5)
[2018-10-21 06:54] LABS: ALBUMIN 2.1 g/dL (3.4-5.0); ALKALINE PHOSPHATASE 66 U/L (46-116); ALT (SGPT) 10 U/L (10-68); BILIRUBIN - TOTAL 0.83 mg/dL (0.2-1.3); CALC OSMOLALITY 278 mosm/kg (275-300); CALCIUM 7.8 mg/dL (8.5-10.1); CARBON DIOXIDE 31.8 mmol/L (21.0-32.0); CHLORIDE - SERUM 102 mmol/L (98-107); CREATININE - SERUM 0.9 mg/dL (0.6-1.3); GLUCOSE 102 mg/dL (74-106); PROTEIN - SERUM 6.1 g/dL (6.4-8.2); SODIUM 140 mmol/L (136-145); UREA NITROGEN 12 mg/dL (7-18); eGFR NON AFRICAN AMERICAN 89 mL/min (90-120)
[2018-10-21 07:14] LABS: POTASSIUM - SERUM 2.9 mmol/L (3.5-5.1)
--- NOTE | 2018-10-21 08:15 | NUR ---
PT ASSISTED UP TO TOILET. STANDBY ASSIST.
--- NOTE | 2018-10-21 09:15 | NUR ---
MORNING MEDICATIONS PROVIDED. PT HAS BEEN UP TO WALK WITH PHYSICAL THERAPIST.
--- NOTE | 2018-10-21 11:29 | NUR ---
ALERTED PHYSICIAN TO POTASSIUM OF 2.9. ONLY TREATMENT OPTION IS CENTRAL LINE 40MEQ. SAID HE WOULD LOOK AT IT.
--- NOTE | 2018-10-21 14:15 | NUR ---
Nutrition Follow-up: Tolerating PO intake. Eating lunch at time of visit. Diet: AHA PO intake: 75% this AM Last BM: 10/21 Labs noted: K+ 2.9, Ca 7.8, Alb 2.1 Meds noted: KDur, Protonix Rec continue current diet as tolerated. +Boost with meals. RD following.
--- NOTE | 2018-10-21 16:56 | NUR ---
FAMILY AT BEDSIDE. PT ATE CREAM OF CHICKEN SOUP, AWAITING TUNA SALAD PLATE. DENIES ANY ADDITIONAL NEEDS. CALL LIGHT IN REACH.
--- NOTE | 2018-10-21 17:55 | NUR ---
DR FONTANEZ HAS BEEN BY TO SEE PATIENT
[2018-10-22] VITALS (25 sets, daily range): BP systolic 91–119; BP diastolic 50–67
[2018-10-22 06:51] LABS: HEMATOCRIT 30.8 % (42.0-54.0); HEMOGLOBIN 10.3 g/dL (13.5-17.5); MCH 28.7 pg (26.0-34.0); MCHC 33.4 g/dL (31.0-37.0); MCV 85.8 fL (80.0-100.0); MEAN PLATELET VOLUME 9.2 fL (7.4-10.4); RBC 3.59 10x6/uL (4.20-6.10); RDW 14.3 % (11.5-14.5); WBC 6.1 10x3/uL (4.8-10.8)
[2018-10-22 07:03] LABS: ALBUMIN 2.1 g/dL (3.4-5.0); ALKALINE PHOSPHATASE 65 U/L (46-116); ALT (SGPT) 12 U/L (10-68); CALC OSMOLALITY 279 mosm/kg (275-300); CALCIUM 7.8 mg/dL (8.5-10.1); CARBON DIOXIDE 31.5 mmol/L (21.0-32.0); CHLORIDE - SERUM 103 mmol/L (98-107); CREATININE - SERUM 0.9 mg/dL (0.6-1.3); GLUCOSE 100 mg/dL (74-106); POTASSIUM - SERUM 3.2 mmol/L (3.5-5.1); SODIUM 141 mmol/L (136-145); UREA NITROGEN 11 mg/dL (7-18); eGFR NON AFRICAN AMERICAN 89 mL/min (90-120)
--- NOTE | 2018-10-22 08:49 | NUR ---
0700 PT RECIEVED UP IN CHAIR ALERT AND OREINTED ON ROOM AIR, SUBSTERNAL TPM WIRES COILED, L &R CHELI DRAINS, R CHELI DRAIN WITH AIR LEAK AND DOESNT STAY COMPRESSED, L CHELI DRAIN WITH 90ML RED DRAINAGE, DR FONTANEZ NOTIFIED 0845 ASSISTED BACK TO BED, L CHELI AND TPM WIRES REMOVED BY DR MARES NURSE RALPH
--- NOTE | 2018-10-22 09:53 | TEE ---
PATIENT:EMANI NICOLAS MEDICAL RECORD: [id number] LOCATION:[place] [address] AGE OF PATIENT: 68 ADMISSION DATE: 10/17/18 SEX: M REFERRING PHYSICIAN: INTERPRETING PHYSICIAN: MAGDALENO GAFFNEY MD TRANSESOPHAGEAL ECHOCARDIOGRAM Date: 10/17/18 GREG CHARGE Y INDICATIONS: CABG PREMEDICATIONS: PATIENT'S RESPONSE PROCEDURE DOPPLER MEASUREMENTS: LVIT LA 3.8 PA 91 RA LVOT 86 RVOT 69 Asc. Ao 126 AV Gradient Peak 6.3 AV Mean 4.3 AV Area 1.8 MV Gradient Peak 2.6 MV Mean 1.2 MV Area INTERPRETATION: Doppler: 2-D: COLOR FLOW DOPPLER NORMAL SALINE STUDY: MISCELLANOUS: DIAGNOSIS: PLAN: Prn Occupational Therapist:Nick Rebolledo Furnace Hand: Brayan ELI COMMENTS: DATE OF SERVICE: 10/17/2018 PROCEDURE: Transesophageal echo evaluation of valvular structures during bypass surgery. FINDINGS 1. Left ventricular chamber size is within normal limits. Left ventricular systolic function is normal. Overall ejection fraction estimated at 60%. 2. Left atrium, right atrium and right ventricular chamber sizes are within TRANSESOPHAGEAL ECHOCARDIOGRAM REPORT [id number] EMANI NICOLAS normal limits. 3. Valvular structures have normal structure and motion. 4. Doppler interrogation reveals only trace mitral regurgitation, trace tricuspid regurgitation, no other valvular insufficiency or stenosis. 5. No evidence of pericardial effusion or left ventricular thrombus. TRANSINT:[id number] Voice Confirmation ID: [id number] DOCUMENT ID: [id number] at 0953 CC: [id number] DICTATION DATE: 10/18/18 1219 BIKE DESIGNER: 10/19/18 0025 ADM IN [place] [id number] [place] [address]
--- NOTE | 2018-10-22 17:08 | NUR ---
1100 [id number] IN HALLWAY 1300 ATE 75% LUNCH 1500 AMBULATED 500FT 1700 ATE 50% DINNER
[2018-10-23] VITALS (14 sets, daily range): BP systolic 88–116; BP diastolic 52–66
--- NOTE | 2018-10-23 10:56 | NUR ---
PT RESTING QUIETLY IN CHAIR AT BEDSIDE. DENIES NEEDS. CALL LIGHT IN REACH.
[2018-10-23 13:31] LABS: CALCIUM 8.1 mg/dL (8.5-10.1); CARBON DIOXIDE 28.4 mmol/L (21.0-32.0); CHLORIDE - SERUM 104 mmol/L (98-107); GLUCOSE 136 mg/dL (74-106); SODIUM 140 mmol/L (136-145); eGFR NON AFRICAN AMERICAN 79 mL/min (90-120)
[2018-10-23 13:32] LABS: CALC OSMOLALITY 282 mosm/kg (275-300); POTASSIUM - SERUM 3.7 mmol/L (3.5-5.1); UREA NITROGEN 17 mg/dL (7-18)
[2018-10-23] MEDS ORDERED: AMIODARONE HCL200 MG PO (13:43)
[2018-10-23] MEDS ORDERED: K-DUR20 MEQ PO (13:45)
[2018-10-23] MEDS ORDERED: COLACE100 MG PO (13:46)
[2018-10-23] MEDS ORDERED: PERCOCET 5-3251 TAB PO (13:47)
--- NOTE | 2018-10-23 14:13 | NUR ---
LEFT CHELI DRAIN REMOVED. NO BLEEDING. SITE DRESSED WITH IODINE OINTMENT AND GAUZE WITH TEGADERM.
--- NOTE | 2018-10-23 14:33 | NUR ---
Nutrition Follow-up: Pt reports good appetite/PO intake; drinking Boost daily. Noted d/c plans. Diet: Cardiac PO intake: 100% this AM Last BM: 10/23 Wt: 200# Labs noted: Alb 2.1, Ca 7.8, K+ 3.2 Meds noted: KDur, Senokot, Colace Rec continue current diet as tolerated. [place] food preferences within diet restrictions. RD following.
--- NOTE | 2018-10-23 16:24 | NUR ---
DISCHARGE TEACHING WAS PROVIDED TO PATIENT AND . UNDERSTANDS PLAN FOR FOLLOW UP. PRINTED PRESCRIPTION FOR PAIN MEDICATION PROVIDED BY RALPH SAMSON.
--- NOTE | 2018-10-25 20:23 | MORECARE ---
CASE MANAGEMENT DISCHARGE SUMMARY PATIENT: EMANI NICOLAS UNIT: [id number] ADM DATE: 10/17/18 AGE: 68 : 51 SEX: M ROOM/BED: [facility] AUTHOR: DALTON CASON PHYSICIAN: REFERRING PHYSICIAN: MICHAEL FONTANEZ MD DATE OF SERVICE: 10/25/18 Discharge Plan Patient Name: EMANI NICOLAS Facility: [facility]:[place] : 1950 Planned Disposition: Home Anticipated Discharge Date: Discharge Date: 10/23/2018 Expected LOS: Initial Reviewer: [email or web address] Initial Review Date: 10/18/2018 Generated: 10/25/18 9:22 pm DCPIA - Discharge Planning Initial Assessment Updated by [email or web address]: Chelita Bautista on 10/18/18 12:15 pm * Is the patient Alert and Oriented? Yes * How many steps to enter\exit or inside your home? RAMP * PCP [facility] * Pharmacy [facility] * Preadmission Environment Home with Family * ADLs Independent * Other Equipment WALKER, W/C * List name and contact numbers for known caregivers / representatives who currently or will assist patient after discharge: LUKE NICOLAS - [facility] - [phone] * Verbal permission to speak to the caregivers and representatives has been obtained from the patient. Yes * Community resources currently utilized None * Additional services required to return to the preadmission environment? No * Can the patient safely return to the preadmission environment? Yes * Has this patient been hospitalized within the prior 30 days at any hospital? No Coverage Notice Reviewer: [email or web address] - Chelita Bautista Notice Issued Date-Time: 10/23/2018 14:50 Notice Type: IM Discharge Notice Notice Delivered To: Patient Relationship to Patient: Self Street Light Servicer Name: Delivery Method: HAND - Hand Delivered Jsesica Days: Prior Verbal Notification: Recipient Understood Notice: Yes Recipient Signature: Yes Med Rec Note Co-signed by Attending: Coverage Notice Comment: Last DP export: 10/18/18 11:19 am Patient Name: EMANI NICOLAS Page [phone] at 2022 All edits/amendments must be made on the electronic document DICTATION DATE: 10/25/182021 PAPER FINISHER: CHAPARRITA 10/25/182021 RPT#: [id number] DC DATE:10/23/18 STATUS: DIS IN [facility] [address] [place] [address] END OF REPORT
== END 2018-10-23 16:25 | disposition home or self-care (01) | DRG 236 ==
LOC: D.SDCHOLD 13:30 → D.CVICU 10-17 05:00 → D.SDCHOLD 10-17 07:30 → D.CVICU 10-17 11:30 → D.SDCHOLD 10-17 13:30 → D.CVICU 10-23 16:25
PROVIDERS: ADMIT Thoracic Surgery (Cardiothoracic Vascular Surgery); ATTEND Thoracic Surgery (Cardiothoracic Vascular Surgery)
PROC: 02100Z8 Bypass Coronary Artery, One Artery from Right Internal Mammary, Open Approach (ICD-10-PCS; 2018-10-17)
PROC: 021009W Bypass Coronary Artery, One Artery from Aorta with Autologous Venous Tissue, Open Approach (ICD-10-PCS; 2018-10-17)
PROC: 06BP4ZZ Excision of Right Saphenous Vein, Percutaneous Endoscopic Approach (ICD-10-PCS; 2018-10-17)
PROC: 5A1221Z Performance of Cardiac Output, Continuous (ICD-10-PCS; 2018-10-17)
PROC: B24BZZ4 Ultrasonography of Heart with Aorta, Transesophageal (ICD-10-PCS; 2018-10-17)
PROC: 02100Z9 Bypass Coronary Artery, One Artery from Left Internal Mammary, Open Approach (ICD-10-PCS; principal; 2018-10-17 07:30)
DX: I25.10 Atherosclerotic heart disease of native coronary artery without angina pectoris (principal); J90 Pleural effusion, not elsewhere classified; K56.7 Ileus, unspecified; I95.9 Hypotension, unspecified

== ENCOUNTER 2018-11-30 08:59 | Inpatient (IN) | payer MEDICARE, OTHER ==
[2018-11-30] VITALS (20 sets, daily range): BP systolic 85–142; BP diastolic 57–93; Ht 185.4 cm; Wt 93.2 kg
[~2018-11-30] VITALS: Ht 185.4 cm; Wt 93.2 kg
[~2018-11-30 08:59] MED LIST changes: +AMIODARONE HCL200 MG PO; +BAYER CHEWABLE81 MG PO; +COLACE100 MG PO; +K-DUR20 MEQ PO; +PERCOCET 5-3251 TAB PO
--- NOTE | 2018-11-30 10:40 | NUR ---
ARRIVED TO UNIT AT THIS TIME FROM ER VIA BED. ACCOMPANIED BY HOSPITAL STAFF. PT ALERT AND ORIENTED. VSS. DR MALIN ON UNIT, HAS SEEN PT. WILL CONTINUE PLAN OF CARE.
[2018-11-30 11:37] LABS: BASOPHILS 0.5 % (0-2); EOSINOPHILS 0.7 % (0-7); HEMATOCRIT 36.6 % (42.0-54.0); HEMOGLOBIN 11.9 g/dL (13.5-17.5); IMMATURE GRANULOCYTES 0.2 % (0-5); LYMPHOCYTES 18.7 % (15-50); MCH 27.9 pg (26.0-34.0); MCHC 32.5 g/dL (31.0-37.0); MCV 85.9 fL (80.0-100.0); MEAN PLATELET VOLUME 9.5 fL (7.4-10.4); NEUTROPHILS 69.9 % (40-80); PLATELET COUNT 290 10x3/uL (130-400); RBC 4.26 10x6/uL (4.20-6.10); RDW 15.5 % (11.5-14.5)
[2018-11-30 11:52] LABS: APTT 33.3 SECONDS (22.8-39.4); INR 1.23 (0.85-1.17); PROTIME 14.9 SECONDS (11.6-15.0)
[2018-11-30 11:55] LABS: ALBUMIN 2.6 g/dL (3.4-5.0); ANION GAP 7.7 mmol/L (8-16); BILIRUBIN - TOTAL 0.88 mg/dL (0.2-1.3); CALCIUM 7.8 mg/dL (8.5-10.1); CARBON DIOXIDE 34.3 mmol/L (21.0-32.0); CREATININE - SERUM 1.4 mg/dL (0.6-1.3); PROTEIN - SERUM 6.5 g/dL (6.4-8.2)
--- NOTE | 2018-11-30 11:55 | NUR ---
REPORT RECEIVED. PT A&0. RESTING IN BED ON 2L. DENIES PAIN, BUT SAYS DOESN'T FEEL LIKE CAN GET A GOOD BREATH. LEFT LUNG SOUNDS SHALLOW BUT CLEAR. RIGHT LUNG SOUNDS CLEAR. PT HAD MIKE HOSE ON. RIGHT LOWER LEG HAS SCAB/SORE ON MORGAN. WOUND CLEANED WITH WOUND CLEANSER AND DRESSED WITH SMALL MEPILEX. NEW MIKE HOSE PLACED ON PATIENT. MIDLINE STERNAL INCISION/SCAR WNL. IS AT BEDSIDE. CONSENTS HAVE BEEN OBTAINED FOR CT GUIDED LEFT THORACENTESIS. LABS HAVE BEEN DRAWN. PT HAS PIV TO RIGHT FOREARM. SALINE LOCKED. VSS. PT HAS GLASSES AND DENTURES. CALL LIGHT IN REACH. RESPIRATORY THERAPIST HAS BROUGHT IN INCENTIVE SPIROMETRY FOR PATIENT. CONSISTENT 1000.
--- NOTE | 2018-11-30 12:13 | NUR ---
PT LEAVING UNIT TO James
--- NOTE | 2018-11-30 14:20 | NUR ---
COFFEE SHOP AIDE AT BEDSIDE
[2018-11-30 15:13] LABS: MESOTHELIALS BF 2 %; NEUT - BF 55 %
--- NOTE | 2018-11-30 16:21 | NUR ---
PT COUGHING CONTINUOUSLY. O2 MOVED TO 4L. SAT REMAINING ABOVE 95%. PT DISTRESSED DEMANDING SOMETHING BE DONE NOW. DR MALIN WAS CALLED. REVIEWED FINDINGS OF POST THORACENTESIS XRAY. ASKED FOR DR CAIN TO BE CONSULTED. DR CAIN CALLED AND NOTIFIED OF CONSULT. NEW ORDERS FOR DUONEB AND BIPAP RECEIVED. RESPIRATORY THERAPIST NOTIFIED OF NEW ORDERS.
--- NOTE | 2018-11-30 17:30 | NUR ---
PT CONTINUES TO COUGH, BUT REDUCED IN FRQUENCY. PT STATES A LITTLE EASIER TO BREATHE AFTER BREATHING TREATMENT. LUNG SOUNDS WET, BUT NOT BAD PRIOR TO TX. PT ENCOURAGED TO SLOW RR RATE AND BREATHE DEEPER. APPEARS ANXIOUS. IS AT BEDSIDE.
--- NOTE | 2018-11-30 19:24 | NUR ---
SHIFT ASSESSMENT COMPLETED SEE FLOWSHEET. PATIENT STATES "IM NOT DOING GOOD" WHEN PROMPTED TO ELABORATE HE CAN'T GO INTO DETAIL. RT AT BEDSIDE, PATIENT IN TRIPOD POSITION ON SIDE OF BED, LEANED OVER TABLE, BREATHING TREATMENT BEING DONE RIGHT NOW. LOW SYSTOLIC BP NOTED
--- NOTE | 2018-11-30 19:57 | NUR ---
INSTRUCTED PATIENT TO DO IS AND TAKE BIG DEEP PULLS. ONLY ABLE TO GET TO 500 - PATIENT STATED HE CAN NORMALLY DO BETTER BUT HE IS UNABLE TO TODAY. VSS CPOC
--- NOTE | 2018-11-30 20:15 | NUR ---
DR MALIN CALLED AND UPDATED ON PT CONDITION PRIOR TO MY LEAVING FOR THE NIGHT. LET HIM KNOW PT RESTING, COUGHING HAS SLOWED. BREATHING TREATMENTS HAVE BEEN ORDERED WELL BIPAP (LET HIM KNOW PT REFUSED BIPAP EARLIER WHEN COUGHING SO BAD). PT HAS HAD SOME TACHYCARDIA WITH HR IN 120'S, BUT CURRENTLY 108. PT HAS HAD NO URINE OUTPUT SINCE ARRIVAL. ORDERED LASIX. ALSO LET HIM KNOW PT HAS HAD VOMITING DUE TO COUGHING, BUT RESOLVED AFTER WAS ABLE TO STOP COUGHING HARD AND FREQUENTLY. LET HIM KNOW WAS GIVING IV POTASSIUM REPLACEMENT. ASKED THAT THE NS THAT IS BEING USED ALONGSIDE NOT RUN MUCH TO PROVIDE PT WITH TOO MUCH FLUID. LOW BP REVIEWED, SAYS PT HAS HX OF LOW BP. ASKED FOR PA&LAT BE ORDERED FOR AM AND TO MAKE SURE A HEMOGRAM AND BMP ARE ORDERED. (PT HAS ORDERS FOR SERIAL CMP AND CBC). UPDATED AND PT THAT I HAVE SPOKEN WITH DR MALIN AND WHAT PLANS ARE.
--- NOTE | 2018-11-30 20:32 | NUR ---
PATIENT RECEIVED HS MEDICATIONS, IS PERFORMED AT THIS TIME, AT BEDSIDE, INSPIRATORY EFFORT 1000. VSS CPOC
--- NOTE | 2018-11-30 23:41 | NUR ---
REASSESSMENT COMPLETED SEE FLOWSHEET
[2018-12-01] VITALS (17 sets, daily range): BP systolic 85–161; BP diastolic 56–101
--- NOTE | 2018-12-01 02:58 | NUR ---
PATIENT RESTING COMFORTABLY BIPAP ON AT THIS TIME REASSESSMENT COMPLETED SEE FLOWSHEET
[2018-12-01 03:00] LABS: BASOPHILS 0.1 % (0-2); EOSINOPHILS 0 % (0-7); HEMATOCRIT 41.2 % (42.0-54.0); HEMOGLOBIN 13.7 g/dL (13.5-17.5); IMMATURE GRANULOCYTES 0.3 % (0-5); LYMPHOCYTES 4.6 % (15-50); MCH 28.2 pg (26.0-34.0); MCHC 33.3 g/dL (31.0-37.0); MCV 84.8 fL (80.0-100.0); MEAN PLATELET VOLUME 9.8 fL (7.4-10.4); MONOCYTES 2.2 % (2-11); NEUTROPHILS 92.8 % (40-80); PLATELET COUNT 322 10x3/uL (130-400); RBC 4.86 10x6/uL (4.20-6.10); RDW 15.3 % (11.5-14.5)
[2018-12-01 03:03] LABS: WBC 15.5 10x3/uL (4.8-10.8)
[2018-12-01 03:21] LABS: ALBUMIN 2.4 g/dL (3.4-5.0); BILIRUBIN - TOTAL 0.76 mg/dL (0.2-1.3); CALCIUM 7.6 mg/dL (8.5-10.1); CARBON DIOXIDE 30.5 mmol/L (21.0-32.0)
[2018-12-01 03:22] LABS: ANION GAP 11.8 mmol/L (8-16); CREATININE - SERUM 1.9 mg/dL (0.6-1.3); POTASSIUM - SERUM 4.3 mmol/L (3.5-5.1)
--- NOTE | 2018-12-01 05:19 | NUR ---
AM LABS REVIEWED, NOTHING TO TREAT PER ELECTROLYTE PROTOCOL. PT BACK TO ROOM FROM PA AND LAT CXR, TOLERATED WITHOUT DIFFICULTY NOTED.
--- NOTE | 2018-12-01 09:49 | NUR ---
0945: DR. CAIN HERE. O2 DC'D AND IV SALINE LOCKED. 0949: AMBULATING WITH PT.
--- NOTE | 2018-12-01 17:22 | NUR ---
REPORT CALLED TO MICHAEL QIU RN.
--- NOTE | 2018-12-01 17:37 | NUR ---
TRANSFERRED TO ROOM 2138 IN WHEELCHAIR BY Selina CHESTER RN.
--- NOTE | 2018-12-01 17:54 | NUR ---
PATIENT ARRIVED TO THE FLOOR VIA WHEELCHAIR. NO O2 IS NOTED AND THE IV TO THE RIGHT FOREARM IS SALINE LOCKED. BED IS IN LOW POSITION AND CALL LIGHT IS IN REACH. PATIENT DENIES AND PAIN OR NEEDS AT THIS TIME
--- NOTE | 2018-12-01 19:21 | NUR ---
PATIENT LAYING IN BED. NO COMPLAINTS AT THIS TIME. NO DISTRESS NOTED.
[2018-12-02 04:15] VITALS: BP 98/60
--- NOTE | 2018-12-02 06:00 | NUR ---
I have reviewed this patient and I concur with the Shift Assessment completed by the Licensed Practical Nurse today this shift.
--- NOTE | 2018-12-02 07:54 | NUR ---
PATIENT HAS BEEN ASKING IF HE WILL GET ANOTHER XRAY BEFORE D/C. THERE ARE CURRENTLY NO ORDERS THAT I CAN FIND TO THAT EFFECT.
--- NOTE | 2018-12-02 07:55 | NUR ---
PATIENT IS RESTING IN BED WITH FAMILY AT BEDSIDE. HE REPORTS THAT HE IS GOING HOME TODAY.
[2018-12-02 08:14] VITALS: BP 109/58
--- NOTE | 2018-12-02 09:07 | NUR ---
PATIENT IS DISCHARGING THIS MORNING. DR CAIN REPOTS THAT THE PATIENT MADE AN APPT FOR A CHEST X RAY WITH HIS PROMARY DR LEWIS D/C.
[2018-12-02 11:17] VITALS: BP 90/52
[2018-12-02] MEDS ORDERED: MEDROL DOSE PACK4 MG PO (11:32)
--- NOTE | 2018-12-02 13:52 | NUR ---
PATIENT IS BEING DISCHARGED. DISCHARGE TEACHING DONE AND PAPERS SIGNED. IV REMOVED WITH CATHETER INTACT. PATIENT TOLERATED. ALL BELONGINGS HAVE BEEN REMOVED FROM THE ROOM. PATIENT IS GOING DOWN STAIRS BY WHEELCHAIR.
--- NOTE | 2018-12-02 16:42 | MORECARE ---
CASE MANAGEMENT DISCHARGE SUMMARY PATIENT: EMANI NICOLAS UNIT: [id number] ADM DATE: 11/30/18 AGE: 68 : 51 SEX: M ROOM/BED: D.1023 AUTHOR: DALTON CASON PHYSICIAN: REFERRING PHYSICIAN: SOY MALIN MD DATE OF SERVICE: 12/02/18 Discharge Plan Patient Name: EMANI NICOLAS Facility: [facility]:[place] : 1950 Planned Disposition: Home Anticipated Discharge Date: 12/02/18 Discharge Date: 12/02/2018 Expected LOS: 2 Initial Reviewer: [email or web address] Initial Review Date: 12/02/2018 Generated: 12/02/18 5:42 pm Comments DCP- Discharge Planning Updated by [email or web address]: Bonifacio Michaels on 12/02/18 3:[address] Patient Name: EMANI NICOLAS Admission Status: ER Accout number: [id number] Admission Date: 11-30-2018 : 1950 Admission Diagnosis: Attending: SOY MALIN Current LOS: 2 Anticipated DC Date: 12-02-2018 Planned Disposition: Home Primary Insurance: MEDICARE A & B Discharge Planning Comments: CM MET WITH PT IN ROOM TO DISCUSS DISCHARGE PLANNING AND NEEDS. PT REPORTS LIVING AT HOME INDEPENDENTLY WITH SPOUSE. PT HAS WHEELCHAIR AND WALKER WITH NO MEDICAL EQUIPMENT PROVICER PREFERENCE. PT HAS NO OUTSIDE SERVICES ASSISTING IN THE HOME. CM DISCUSSED AVAILABILITY OF HOME HEALTH, REHAB SERVICES AND MEDICAL EQUIPMENT. PT DENIES DISCHARGE NEEDS, REPORTS HIS WILL PICK HIM UP FOR DISCHARGE HOME. Collection Advisor: Bonifacio Michaels DCPIA - Discharge Planning Initial Assessment Updated by [email or web address]: Bonifacio Michaels on 12/02/18 4:35 pm * Is the patient Alert and Oriented? Yes * How many steps to enter\exit or inside your home? RAMP * PCP DR. DORAN IN [place] * Pharmacy [facility] [place] * Preadmission Environment Home with Family * ADLs Independent * Equipment Walker Wheelchair * Other Equipment NO MEDICAL EQUIPMENT PROVIDER PREFERENCE * List name and contact numbers for known caregivers / representatives who currently or will assist patient after discharge: LUKE NICOLAS, , * Verbal permission to speak to the caregivers and representatives has been obtained from the patient. N/A * Community resources currently utilized None * Please name any agencies selected above. NONE * Additional services required to return to the preadmission environment? No * Can the patient safely return to the preadmission environment? Yes * Has this patient been hospitalized within the prior 30 days at any hospital? Yes Coverage Notice Reviewer: [email or web address] Travis Michaels Notice Issued Date-Time: 12/02/2018 12:10 Notice Type: IM Discharge Notice Notice Delivered To: Patient Relationship to Patient: Foreign Language Teacher Name: Delivery Method: HAND - Hand Delivered Jessica Days: Prior Verbal Notification: Recipient Understood Notice: Yes Recipient Signature: Yes Med Rec Note Co-signed by Attending: Coverage Notice Comment: Patient Name: EMANI NICOLAS Page [phone] at 1642 All edits/amendments must be made on the electronic document DICTATION DATE: 12/02/181640 INSURANCE ACTUARY: CHAPARRITA 12/02/181640 RPT#: [id number] DC DATE:12/02/18 STATUS: DIS IN [facility] [address] [place] [address] END OF REPORT
--- NOTE | 2018-12-03 13:03 | EC ---
PATIENT:EMANI NICOLAS DATE OF SERVICE: 11/30/18 SEX: M MEDICAL RECORD: [id number] DATE OF : [birth year] LOCATION:D.M2 D.213 AGE OF PATIENT: 68 ADMISSION DATE: 11/30/18 REFERRING PHYSICIAN: INTERPRETING PHYSICIAN: PEG CANNON MD ECHOCARDIOGRAM REPORT ECHO CHARGES 5 ECHO LIMITED Date: 11/30/18 1 DOPPLER ECHO COLOR FLOW 2 DOPPLER ECHO PULSE CLINICAL DIAGNOSIS: PERICARDIAL EFFUSION S/P PERICARDIOTOMY SYNDROME/ CABG ECHOCARDIOGRAPHIC MEASUREMENTS (adult normal given) AC root (d.<3.7cm) 0 cm LV Septum d (<1.2 cm> 0 cm Valve Excursion 0 cm LV Septum (systole) 0 cm Left Atria (s.<4.0cm> 0 cm LVPW d(<1.2cm) 0 cm RV (d.<2.3cm) 0 cm LVPW (sytole) 0 cm LV diastole(<5.6CM) 0 cm MV E-F(>70mm/sec) 0 cm LV systole 0 cm LVOT Diameter 0 cm MV exc.(>10mm) 0 cm Est.ejection fraction (50-75%) % DOPPLER: LVIT 0 cm/sec A 0 cm/sec E 0 cm/sec LA 0 cm/sec RVSP 38.0 mmHg LVOT 0 cm/sec AOP1/2T 0 m/s Asc. Ao 0 cm/sec RVOT 0 cm/sec RA 0 cm/sec PA 0 cm/sec AV Gradient Peak 0 mmHg AV Mean 0 mmHg AV Area 0 cm MV Gradient Peak 0 mmHg MV Mean 0 mmHg MV Area 0 cm COMMENTS: LIMITED STUDY (2-D,COLOR,DOPPLER) COMPLET ECHO DONE ON 10/11/18 Associate Software Application Engineer: 1 JOSE D FU Child And Family Services Specialist: 3 Dr. Parker TAPE# PACS Pericardial Effusion Y DATE OF SERVICE: 12/01/2018 Adequate 2-D, color-flow imaging, spectral Doppler and M-Mode. Grossly, no LVH. LV internal dimensions are normal. Difficult to fully assess focal wall motion; however, from views present we estimated EF to be lower limits of normal, mildly reduced 40% to 45%. The aortic valve shows adequate valve excursion. Left atrium grossly appears normal with normal mitral valve excursion. There is 1 to approximately a 4-cm circumferential pericardial ECHOCARDIOGRAM REPORT [id number] EMANI NICOLAS effusion. Does not appear to show any hemodynamic compromise in the views present on the RV. TRANSINT:[id number] Voice Confirmation ID: [id number] DOCUMENT ID: [id number] PEG CANNON MD at 1303 CC: [id number] DICTATION DATE: 12/01/18925 GENERAL PURCHASING AGENT: 12/01/18 1310 DIS IN 12/02/18 [place] [id number] [place] [address]
[2018-12-03 16:09] LABS: ACID FAST SMEAR Negative (()); AFB SPECIMEN PROCESSING Not Indicated (())
[2018-12-04 13:10] LABS: FUNGUS STAIN Final report (())
[2018-12-09 11:09] LABS: FUNGUS MYCOLOGY CULTURE Preliminary report (())
== END 2018-12-02 14:22 | disposition home or self-care (01) | DRG 315 ==
LOC: D.ER 08:59 → D.M2 10:20 → D.ICU 10:20 → D.M2 12-01 17:38
PROVIDERS: Emergency Medicine; Radiology Vascular & Interventional Radiology; ADMIT Internal Medicine Cardiovascular Disease; ATTEND Internal Medicine Cardiovascular Disease
PROC: 5A09357 Assistance with Respiratory Ventilation, Less than 24 Consecutive Hours, Continuous Positive Airway Pressure (ICD-10-PCS; 2018-11-30)
PROC: 0W9B3ZZ Drainage of Left Pleural Cavity, Percutaneous Approach (ICD-10-PCS; principal; 2018-11-30 12:15)
DX: I97.0 Postcardiotomy syndrome (principal); J90 Pleural effusion, not elsewhere classified; I30.9 Acute pericarditis, unspecified; Z95.1 Presence of aortocoronary bypass graft

== ENCOUNTER → 2018-12-18 10:07 | Outpatient (CLI) | payer MEDICARE, OTHER ==
[2018-11-30 13:36] VITALS: BMI 26.8
[~2018-12-18 10:07] MED LIST changes: +ALDACTONE50 MG PO; +HYDROCODON-ACE1 EAC7 PO; +MEDROL DOSE PACK4 MG PO
--- NOTE | 2018-12-26 13:30 | EC ---
PATIENT:EMANI NICOLAS DATE OF SERVICE: 12/18/18 SEX: M MEDICAL RECORD: [id number] DATE OF : [birth year] LOCATION:D.[facility] AGE OF PATIENT: 68 ADMISSION DATE: 12/18/18 REFERRING PHYSICIAN: INTERPRETING PHYSICIAN: MAGDALENO CADENA MD ECHOCARDIOGRAM REPORT ECHO CHARGES 4 ECHO COMPLETE Date: 12/18/18 CLINICAL DIAGNOSIS: PERICARDIAL EFFUSION ECHOCARDIOGRAPHIC MEASUREMENTS (adult normal given) AC root (d.<3.7cm) 3.5 cm LV Septum d (<1.2 cm> 1.2 cm Valve Excursion 2.2 cm LV Septum (systole) 1.4 cm Left Atria (s.<4.0cm> 2.9 cm LVPW d(<1.2cm) 1.1 cm RV (d.<2.3cm) 2.9 cm LVPW (sytole) 1.2 cm LV diastole(<5.6CM) 4.6 cm MV E-F(>70mm/sec) cm LV systole 3.8 cm LVOT Diameter 1.8 cm MV exc.(>10mm) cm Est.ejection fraction (50-75%) % DOPPLER: LVIT cm/sec A 81.0 cm/sec E 79.0 cm/sec LA cm/sec RVSP 21.9 mmHg LVOT 104 cm/sec AOP1/2T m/s Asc. Ao 132 cm/sec RVOT 68 cm/sec RA cm/sec PA 97 cm/sec AV Gradient Peak 7.0 mmHg AV Mean 3.9 mmHg AV Area 2.2 cm MV Gradient Peak 3.2 mmHg MV Mean 1.9 mmHg MV Area cm COMMENTS: Human Resources Team Member: Brayan ELI [employer] Visitor: 1 Dr. Cadena TAPE# PACS Pericardial Effusion N DATE OF SERVICE: 12/18/2018 DATE OF SERVICE: 12/18/2018. FINDINGS: 1. Left ventricular chamber size is within normal limits. Left ventricular systolic function is normal. Overall ejection fraction estimated at 55% to 60%. 2. Left atrium is within normal limits. Right atrium and right ventricular chamber sizes are mildly dilated. 3. Valvular structures have normal structure and motion. ECHOCARDIOGRAM REPORT [id number] EMANI NICOLAS 4. Doppler interrogation only reveals trace tricuspid regurgitation, no other valvular insufficiency or stenosis. Pulmonary systolic pressure estimated at 22 mmHg. 5. No evidence of pericardial effusion or left ventricular thrombus. TRANSINT:[id number] Voice Confirmation ID: [id number] DOCUMENT ID: [id number] MAGDALENO CADENA MD at 1330 CC: [id number] DICTATION DATE: 12/18/18 1215 PEDIGREE TRACER: 12/18/180 DEP CLI 12/18/18 [place] [id number] [place] [id number]
== END | disposition home or self-care (01) ==
LOC: D.ECHO 10:07
PROVIDERS: ATTEND Thoracic Surgery (Cardiothoracic Vascular Surgery)
DX: I31.3 Pericardial effusion (noninflammatory) (principal)

== ENCOUNTER 2018-12-19 11:47 | Inpatient (IN) | payer MEDICARE, OTHER ==
[~2018-12-19] VITALS: Ht 185.4 cm; Wt 87.3 kg
[2018-12-19] VITALS (12 sets, daily range): BP systolic 104–117; BP diastolic 54–67; BMI 25.4
[~2018-12-19 11:47] MED LIST changes: -ALDACTONE50 MG PO; -HYDROCODON-ACE1 EAC7 PO
--- NOTE | 2018-12-19 14:28 | NUR ---
PATIENT RECEIVED DIRECT ADMIT VIA WHEEL CHAIR, ALERT AND ORIENTED X 4, SPO2 - 100% ON RA, HR 78, BP 109/66 (73), HEAD TO TOE ASSESSMENT COMPLETED. LABS DRAWN AND SENT.
[2018-12-19 14:34] LABS: HEMATOCRIT 44.2 % (42.0-54.0); HEMOGLOBIN 14.1 g/dL (13.5-17.5); MCH 28.1 pg (26.0-34.0); MCHC 31.9 g/dL (31.0-37.0); MCV 88.2 fL (80.0-100.0); MEAN PLATELET VOLUME 9.9 fL (7.4-10.4); RBC 5.01 10x6/uL (4.20-6.10); RDW 16.4 % (11.5-14.5); WBC 7.6 10x3/uL (4.8-10.8)
[2018-12-19 14:43] LABS: APTT 27.3 SECONDS (22.8-39.4); PROTIME 12.7 SECONDS (11.6-15.0)
[2018-12-19 14:45] LABS: PLT FUNCT.(P2Y12) PLAVIX 215 PRU (194-418)
--- NOTE | 2018-12-19 14:54 | NUR ---
12 LEAD ECG OBTAINED, NSR RATE 78.
[2018-12-19 14:55] LABS: ALBUMIN 2.9 g/dL (3.4-5.0); ANION GAP 10.9 mmol/L (8-16); BILIRUBIN - TOTAL 0.5 mg/dL (0.2-1.3); CALCIUM 8.2 mg/dL (8.5-10.1); CARBON DIOXIDE 30.5 mmol/L (21.0-32.0); CREATININE - SERUM 1.1 mg/dL (0.6-1.3); POTASSIUM - SERUM 4.4 mmol/L (3.5-5.1); PROTEIN - SERUM 6.5 g/dL (6.4-8.2)
--- NOTE | 2018-12-19 15:00 | NUR ---
PATIENT REASSESSMENT COMPLETED. VSS.
[2018-12-19] MEDS ORDERED: ALDACTONE50 MG PO (15:02)
--- NOTE | 2018-12-19 16:10 | NUR ---
IV 20 GA TO LEFT FA X 1 ATTEMPT WITH POSITIVE BLOOD RETURN AND EASILY FLUSHES.
[2018-12-19 16:18] LABS: APPEARANCE CLEAR (CLEAR); COLOR YELLOW (YELLOW); SPECIFIC GRAVITY 1.015 (1.005-1.020)
[2018-12-19 16:19] LABS: BILIRUBIN NEGATIVE (NEGATIVE); GLUCOSE 50 mg/dL (NEGATIVE); KETONE NEGATIVE (NEGATIVE); NITRITE NEGATIVE (NEGATIVE); PROTEIN NEGATIVE (NEGATIVE); UROBILINOGEN NORMAL (NORMAL)
--- NOTE | 2018-12-19 16:34 | NUR ---
PATIENT GIVEN DINNER TRAY. UC/UA SENT TO LAB.
--- NOTE | 2018-12-19 17:36 | MORECARE ---
CASE MANAGEMENT DISCHARGE SUMMARY PATIENT: EMANI GARCIA JOSE UNIT: [id number] ADM DATE: 12/19/18 AGE: 68 : 51 SEX: M ROOM/BED: D.[facility] AUTHOR: DALTON CASON PHYSICIAN: REFERRING PHYSICIAN: MIHCAEL FONTANEZ MD DATE OF SERVICE: 12/19/18 Discharge Plan Patient Name: EMANI GARCIA [facility] [facility] 1950 Planned Disposition: Home Anticipated Discharge Date: Discharge Date: Expected LOS: Initial Reviewer: [email or web address] Initial Review Date: 12/19/2018 Generated: 12/19/18 6:35 pm DCPIA - Discharge Planning Initial Assessment Updated by [email or web address]: Chelita Bautista on 12/19/18 5:32 pm * Is the patient Alert and Oriented? Yes * How many steps to enter\exit or inside your home? ramp * PCP Rosita Antonio * Pharmacy [facility] * Preadmission Environment Home with Family * ADLs Independent * Other Equipment w/c, walker, hospital bed, bsc, sc, scooter * List name and contact numbers for known caregivers / representatives who currently or will assist patient after discharge: Sulma Garcia - spouse - [phone] * Verbal permission to speak to the caregivers and representatives has been obtained from the patient. Yes * Community resources currently utilized None * Additional services required to return to the preadmission environment? No * Can the patient safely return to the preadmission environment? Yes * Has this patient been hospitalized within the prior 30 days at any hospital? Yes Patient Name: EMANI GARCIA Page [phone] at 1736 All edits/amendments must be made on the electronic document DICTATION DATE: 12/19/181734 PUTTY AND PATCH WORKER: CHAPARRITA 12/19/181734 RPT#: [id number] DC DATE: STATUS: ADM IN [facility] [address] [place] [address] END OF REPORT
--- NOTE | 2018-12-19 17:47 | MORECARE ---
CASE MANAGEMENT DISCHARGE SUMMARY PATIENT: EMANI GARCIA UNIT: [id number] ADM DATE: 12/19/18 AGE: 68 : 51 SEX: M ROOM/BED: D.[facility] AUTHOR: DALTON CASON PHYSICIAN: REFERRING PHYSICIAN: MICHAEL FONTANEZ MD DATE OF SERVICE: 12/19/18 Discharge Plan Patient Name: EMANI GARCIA Facility: [facility]:[place] : 1950 Planned Disposition: Home Anticipated Discharge Date: Discharge Date: Expected LOS: Initial Reviewer: [email or web address] Initial Review Date: 12/19/2018 Generated: 12/19/18 6:46 pm Comments DCP- Discharge Planning Updated by [id number]: Chelita Bautista on 12/19/18 4:[address] Patient Name: EMANI GARCIA Admission Status: Elective Accout number: [id number] Admission Date: 12-19-2018 : 1950 Admission Diagnosis: Attending: MICHAEL FONTANEZ Current LOS: 1 Anticipated DC Date: Planned Disposition: Home Primary Insurance: MEDICARE A & B Discharge Planning Comments: CM met with patient at bedside after explaining CM role and obtaining verbal consent. Patient lives at home with his Sulma where he is independent with his care and plans to return there upon discharge. Patient feels this would be a safe discharge. CM discussed availability / needs of home health and medical equipment. Patient denies any discharge needs at this time. Patient states he will have his family drive him home upon discharge. CM will continue to follow and assist as needed with discharge planning / needs. Pump Erector Helper: Chelita Bautista DCPIA - Discharge Planning Initial Assessment Updated by [email or web address]: Chelita Bautista on 12/19/18 5:32 pm * Is the patient Alert and Oriented? Yes * How many steps to enter\exit or inside your home? ramp * PCP Rosita Antonio * Pharmacy [facility] * Preadmission Environment Home with Family * ADLs Independent * Other Equipment w/c, walker, hospital bed, bsc, sc, scooter * List name and contact numbers for known caregivers / representatives who currently or will assist patient after discharge: Sulma Garcia - spouse - [phone] * Verbal permission to speak to the caregivers and representatives has been obtained from the patient. Yes * Community resources currently utilized None * Additional services required to return to the preadmission environment? No * Can the patient safely return to the preadmission environment? Yes * Has this patient been hospitalized within the prior 30 days at any hospital? Yes Last DP export: 12/19/18 4:35 p Patient Name: EMANI GARCIA Page [phone] at 1747 All edits/amendments must be made on the electronic document DICTATION DATE: 12/19/181745 CUSTOMER SERVICE ASSOCIATE: CHAPARRITA 12/19/181745 RPT#: [id number] DC DATE: STATUS: ADM IN [facility] [address] [place] [address] END OF REPORT
--- NOTE | 2018-12-19 19:00 | NUR ---
REPORT RECEIVED FROM OFF GOING NURSE. PT IS LAYING IN BED AT THIS TIME WITH EYES OPEN. NO FURTHER NEEDS NOTED. NO SIGNS OF ACUTE DISTRESS. WILL CONTINUE TO MONITOR.
--- NOTE | 2018-12-19 21:00 | NUR ---
PT IS LAYING IN BED AT THIS TIME WITH FAMILY AT BEDSIDE. PT DENIES NEEDS AT THIS TIME. NO SIGNS OF ACUTE DISTRESS. WILL CONTINUE TO MONITOR.
--- NOTE | 2018-12-19 23:00 | NUR ---
REASSESSMENT COMPLETED, SEE FLOWSHEET FOR DETAILS. PT IS LAYING IN BED WITH EYES CLOSED AT THIS TIME. NO NEEDS VOICED. NO SIGNS OF ACUTE DISTRESS NOTED. WILL CONTINUE TO MONITOR.
[2018-12-20] VITALS (50 sets, daily range): BP systolic 81–127; BP diastolic 41–69; Ht 185.4 cm; Wt 87.3 kg
--- NOTE | 2018-12-20 01:00 | NUR ---
PT IS LAYING IN BED WITH EYES CLOSED AT THIS TIME. NO NEEDS VOICED. NO SIGNS OF ACUTE DISTRESS NOTED. WILL CONTINUE TO MONITOR.
--- NOTE | 2018-12-20 03:00 | NUR ---
REASSESSMENT COMPLETED, SEE FLOWSHEET FOR DETAILS. PT IS LAYING IN BED WITH EYES CLOSED AT THIS TIME. NO SIGNS OF ACUTE DISTRESS NOTED. WILL CONTINUE TO MONITOR.
--- NOTE | 2018-12-20 05:00 | NUR ---
PT IS RESTING IN BED AT THIS TIME. PT GAVE SELF CHG BATH. COMPLETE LINEN CHANGE. NO FURTHER NEEDS NOTED. NO SIGNS OF ACUTE DISTRESS. WILL CONTINUE TO MONITOR.
--- NOTE | 2018-12-20 09:31 | NUR ---
RETURN TO ROOM CV 4 VIA BED. CONNECTED TO BEDSIDE MONITOR. AROUSES TO VERBAL STIMULI AND FOLLOWS COMMANDS X 4 EXT. O2 VIA SIMPLE FACE MASK CHANGED TO 4 VIA NC. L SUBCLAVIAN WITH PLASMALYTE @ 100 CC/HR. L CT PATENT AND CONNECTED TO PLEUR EVAC TO H2O SEAL. SEROSANGUINEOUS DRAINAGE NOTED. SPRING PATENT AND DRAINING CLEAR YELLOW URINE. SEE FLOWSHEET FOR COMPLETE ASSESSMENT.
--- NOTE | 2018-12-20 19:00 | NUR ---
REPORT RECEIVED. RECEIVED PATIENT IN BED, AWAKE ALERT AND ORIENTED X 4. CLEAR SPEECH. DENIES DYSPNEA. DENIES PAIN. ASSESSMENT COMPLETED PER FLOW SHEET WITH NO ACUTE DISTRESS OBSERVED. MONITORS CONNECTED TO PATIENT WITH ALARMS SET. VSS. CHEST TUBE INTACT/SECURE/PATENT AND DRAINING BLOODY DRAINAGE INTO COLLECTION CHAMBER. AT BEDSIDE. CALL LIGHT IN REACH AND ABLE TO UTILIZE TO MAKE NEEDS KNOWN.
--- NOTE | 2018-12-20 21:00 | NUR ---
RESTING WITH EYES CLOSED, EASILY ROUSED AND ALERT. VSS. PM MEDS TAKEN WITH DIFF. REFUSED COLACE.
--- NOTE | 2018-12-20 23:00 | NUR ---
RESTING WITH EYES CLOSED, EASILY ROUSED AND ALERT. VSS . REASSESSMENT COMPLETED PER FLOW SHEET WITH NO ACUTE DISTRESS OBSERVED. CALL LIGHT IN REACH
[2018-12-21] VITALS (37 sets, daily range): BP systolic 81–122; BP diastolic 42–74
--- NOTE | 2018-12-21 01:00 | NUR ---
RESTING WITH EYES CLOSED, EASILY ROUSED AND ALERT. VSS
--- NOTE | 2018-12-21 03:00 | NUR ---
RESTING WITH EYES CLOSED, EASILY ROUSED AND ALERT. VSS
--- NOTE | 2018-12-21 05:00 | NUR ---
AWAKE AND ALERT. VSS. CALL LIGHT IN REACH
[2018-12-21 05:52] LABS: HEMATOCRIT 38.2 % (42.0-54.0); HEMOGLOBIN 12.2 g/dL (13.5-17.5); MCHC 31.9 g/dL (31.0-37.0); MCV 87.8 fL (80.0-100.0); RBC 4.35 10x6/uL (4.20-6.10); RDW 16.4 % (11.5-14.5); WBC 7.8 10x3/uL (4.8-10.8)
[2018-12-21 06:16] LABS: ALKALINE PHOSPHATASE 80 U/L (46-116); BILIRUBIN - TOTAL 0.64 mg/dL (0.2-1.3); CALC OSMOLALITY 276 mosm/kg (275-300); CALCIUM 7.8 mg/dL (8.5-10.1); CARBON DIOXIDE 29.5 mmol/L (21.0-32.0); CHLORIDE - SERUM 102 mmol/L (98-107); GLUCOSE 126 mg/dL (74-106); POTASSIUM - SERUM 4.7 mmol/L (3.5-5.1); PROTEIN - SERUM 5.5 g/dL (6.4-8.2); SODIUM 137 mmol/L (136-145); UREA NITROGEN 14 mg/dL (7-18); eGFR NON AFRICAN AMERICAN 79 mL/min (90-120)
[2018-12-21 06:17] LABS: ALBUMIN 2.1 g/dL (3.4-5.0); ALT (SGPT) 10 U/L (10-68)
--- NOTE | 2018-12-21 10:49 | OP ---
PATIENT NAME: EMANI NICOLAS MEDICAL RECORD: [id number] :52 LOCATION:D.[facility] D.CV04 ADMISSION DATE:12/19/18 SURGEON: VITO FONTANEZ MD DATE OF OPERATION: 12/20/2018 SURGEON: Vito Fontanez MD BIOMETRICIAN: Bertrand Adams OPERATION PERFORMED: 1. Left video-assisted thoracoscopic surgery. 2. Talc pleurodesis. 3. Bronchoscopy. 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 ANESTHESIA: General endotracheal anesthesia. ESTIMATED BLOOD LOSS: Minimal. COMPLICATIONS: None. SPECIMENS: None. CONDITION: Stable. DISPOSITION: ICU. OPERATIVE FINDINGS: 1. Good position of the double lumen tube with bronchoscopy. 2. Transesophageal echocardiography with good contractility, no pericardial effusion. 3. A 350 cc of serous pleural effusion. 4. No evidence of visceral pleural adhesions or peel. 5. Total of 6 grams talc pleurodesis with good lung reexpansion. OPERATIVE INDICATION: Recurrent pleural effusion. PROCEDURE IN DETAIL: The patient was brought to the operating suite, double lumen general endotracheal anesthesia was obtained and position confirmed with bronchoscopy. The patient turned into the right lateral decubitus position with appropriate padding including an axillary roll. Left chest was deflated. Posterolateral 2-cm incision was made. The chest cavity was entered and the scope was used to visualize all parts of the chest. There were adhesions medially along the old site of internal mammary artery bypass. A 350 cc of serous fluid were removed. Talc was instilled using an insufflator. A separate working port anteriorly was made and the chest tube was placed. The wound was closed with muscle layer, subcutaneous, subcuticular and Dermabond. Marcaine was used for pain. The patient was extubated without difficulty. TRANSINT:[id number] Voice Confirmation ID: [id number] DOCUMENT ID: [id number] OPERATIVE REPORT [id number] EMANI NICOLAS VITO DOWD MD at 1049 CC: RUTH PONCE M.D. and YOVANY CAIN MD [id number] DICTATION DATE: 12/20/18 1043 SUCTION PLATE CARRIER CLEANER: 12/20/18 1130 [place] [address]
--- NOTE | 2018-12-21 11:05 | NUR ---
DR. DIAZ HERE. EPIDURAL DC'D.
--- NOTE | 2018-12-21 13:00 | NUR ---
1300: L RADIAL ARTERIAL LINE DC'D. ALL IV FLUIDS STOPPED. 1315: ASSISTED UP TO CHAIR AND TOILET. VOIDED WITHOUT DIFFICULTY.
--- NOTE | 2018-12-21 19:00 | NUR ---
RECEIVED REPORT. RECEIVED PATIENT IN BED, AWAKE ALERT AND ORIENTED X 4. SPEECH CLEAR. DENIES SOB/DYSPNEA. ON RA . LEFT CHEST TUBE INTACT/ SECURE / PATENT AND DRAINING SEROSANGUINEOUS FLUID INTO COLLECTION CHAMBER. SHIFT ASSESSMENT COMPLETED PER FLOW SHEET WITH NO ACUTE DISTRESS OBSERVED. MONITORS CONNECTED TO PATIENT WITH ALARMS SET. VSS. CALL LIGHT IN REACH AND ABLE TO UTILIZE TO MAKE NEEDS KNOWN. AT BEDSIDE. BED ALARM ON AND FUNCTIONING PROPERLY.
--- NOTE | 2018-12-21 21:00 | NUR ---
RESTING WITH EYES CLOSED, EASILY ROUSED AND ALERT. VSS
--- NOTE | 2018-12-21 21:45 | NUR ---
ASSISTED PATIENT TO BATHROOM GAIT STEADY. VOIDED. ASSISSTED BACK TO BED. PASTORA WELL. VSS.
--- NOTE | 2018-12-21 23:00 | NUR ---
RESTING WITH EYES CLOSED, EASILY ROUSED AND ALERT. VSS. REASESSEMENT COMPLETED PER FLOW SHEET WITH NO ACUTE DISTRESS OBSERVED. CALL LIGHT IN REACH.
[2018-12-22] VITALS (24 sets, daily range): BP systolic 92–140; BP diastolic 56–84
--- NOTE | 2018-12-22 01:00 | NUR ---
RESTING WITH EYES CLOSED, EASILY ROUSED AND ALERT. VSS
--- NOTE | 2018-12-22 03:00 | NUR ---
REASSESSMENT COMPLETED PER FLOW SHEET WITH NO ACUTE DISTRESS OBSERVED. VSS. CALL LIGHT IN REACH
--- NOTE | 2018-12-22 03:00 | NUR ---
REASSESSMENT COMPLETED PER FLOW SHEET WITH NO ACUTE DISTRESS OBSERVED. VSS. CALL LIGHT IN REACH
[2018-12-22 06:34] LABS: HEMATOCRIT 38.7 % (42.0-54.0); HEMOGLOBIN 12.2 g/dL (13.5-17.5); MCH 27.7 pg (26.0-34.0); MCHC 31.5 g/dL (31.0-37.0); MCV 87.8 fL (80.0-100.0); MEAN PLATELET VOLUME 9.8 fL (7.4-10.4); RBC 4.41 10x6/uL (4.20-6.10); RDW 16.5 % (11.5-14.5); WBC 6.6 10x3/uL (4.8-10.8)
[2018-12-22 06:49] LABS: ALBUMIN 2.1 g/dL (3.4-5.0); ALKALINE PHOSPHATASE 87 U/L (46-116); CALC OSMOLALITY 273 mosm/kg (275-300); CALCIUM 7.9 mg/dL (8.5-10.1); CARBON DIOXIDE 31.6 mmol/L (21.0-32.0); CHLORIDE - SERUM 103 mmol/L (98-107); GLUCOSE 134 mg/dL (74-106); POTASSIUM - SERUM 4.7 mmol/L (3.5-5.1); SODIUM 136 mmol/L (136-145); UREA NITROGEN 13 mg/dL (7-18); eGFR NON AFRICAN AMERICAN 79 mL/min (90-120)
[2018-12-22 06:52] LABS: ALT (SGPT) 13 U/L (10-68)
--- NOTE | 2018-12-22 13:00 | NUR ---
0830: VOMITING UP UNDIGESTED FOOD FROM BREAKFAST. 0836: ZOFRAN GIVEN. FENTANYL PATCH REMOVED. FENTANYL PATCH THE ONLY NEW MEDICATION SINCE YESTERDAY AND NO NAUSEA NOTED AT ALL YESTERDAY. 0900: UP TO BATHROOM. SMALL BM NOTED. 1015: DR. FONTANEZ HERE. CONDITION UPDATE GIVEN. 1030: COMPLETE CHG BATH DONE AND L CHEST TUBE DRESSING CHANGED.
--- NOTE | 2018-12-22 19:00 | NUR ---
REPORT RECEIVED. RECEIVED PATIENT IN BED, AWAKE ALERT AND ORIENTED X 4. SPEECH CLEAR. AT BEDSIDE. SHIFT ASSESSMENT COMPLETED PER FLOW SHEET WITH NO ACUTE DISTRESS OBSERVED. MONITORS CONNECTED TO PATIENT WITH ALARMS SET. VSS. CHEST TUBE INTACT/SECURE/PATENT AND DRAINING SMALL AMOUNT OF SEROUS FLUID INTO COLLECTION CHAMBER. CALL LIGHT IN REACH AND ABLE TO UTILIZE TO MAKE NEEDS KNOWN. DENIES NAUSEA
--- NOTE | 2018-12-22 21:00 | NUR ---
AWAKE AND ALERT. PM MEDS TAKEN WITHOUT DIFF. VSS. NO DISTRESS OBSERVED. CALL [facility] IN REACH
--- NOTE | 2018-12-22 23:00 | NUR ---
RESTING WITH EYES CLOSED, ROUSES EASILY AND ALERT. REASSESSMENT COMPLETED PER FLOW SHEET WITH NO CHANGES OR ACUTE DISTRESS OBSERVED. VSS. CALL LIGHT IN REACH
[2018-12-23] VITALS (7 sets, daily range): BP systolic 84–110; BP diastolic 46–62
--- NOTE | 2018-12-23 01:00 | NUR ---
RESTING WITH EYES CLOSED. VSS. CALL LIGHT IN REACH
--- NOTE | 2018-12-23 03:00 | NUR ---
RESTING WITH EYES CLOSED, EASILY ROUSED AND ALERT. VSS. REASSESSMENT COMPLETED PER FLOW SHEET WITH NO ACUTE DISTRESS OBSERVED. CALL LIGHT IN REACH
[2018-12-23 05:42] LABS: HEMATOCRIT 39.1 % (42.0-54.0); HEMOGLOBIN 12.3 g/dL (13.5-17.5); MCH 27.5 pg (26.0-34.0); MCHC 31.5 g/dL (31.0-37.0); MCV 87.5 fL (80.0-100.0); MEAN PLATELET VOLUME 9.9 fL (7.4-10.4); RBC 4.47 10x6/uL (4.20-6.10); RDW 16.4 % (11.5-14.5); WBC 5.5 10x3/uL (4.8-10.8)
[2018-12-23 06:08] LABS: ALBUMIN 2.1 g/dL (3.4-5.0); ALKALINE PHOSPHATASE 81 U/L (46-116); ALT (SGPT) 10 U/L (10-68); BILIRUBIN - TOTAL 0.58 mg/dL (0.2-1.3); CALC OSMOLALITY 275 mosm/kg (275-300); CALCIUM 8.1 mg/dL (8.5-10.1); CARBON DIOXIDE 29.9 mmol/L (21.0-32.0); CHLORIDE - SERUM 102 mmol/L (98-107); CREATININE - SERUM 0.9 mg/dL (0.6-1.3); GLUCOSE 126 mg/dL (74-106); POTASSIUM - SERUM 4.5 mmol/L (3.5-5.1); PROTEIN - SERUM 6.1 g/dL (6.4-8.2); SODIUM 137 mmol/L (136-145); UREA NITROGEN 12 mg/dL (7-18); eGFR NON AFRICAN AMERICAN 89 mL/min (90-120)
--- NOTE | 2018-12-23 07:00 | NUR ---
PATIENT RESTING IN BED C CALL [facility] IN REACH. REPORT RECEIVED AT BEDSIDE. VSS.
--- NOTE | 2018-12-23 09:43 | NUR ---
PATIENT WALKED THE LOOP WITH PHYSICAL THERAPY. RETURNED TO BED SO CHEST TUBES CAN BE PULLED. VSS.
--- NOTE | 2018-12-23 10:43 | NUR ---
LEFT SIDE CHEST TUBE PULLED AT THIS TIME. SITE CLEANED WITH BETA DINE AND DRESSED WITH GUAZE AND TEGADERM
[2018-12-23] MEDS ORDERED: HYDROCODON-ACE1 EAC7 PO (13:37)
--- NOTE | 2018-12-23 14:51 | NUR ---
Nutrition Follow-up: Pt reports fair appetite/PO intake. Noted pt experienced vomiting yesterday but pt reports no N/V today. Diet: Cardiac PO intake: 25-50% Wt: 192# Last BM: 12/22 Labs noted: Glu 126, Ca 8.1, Alb 2.1, A1C 6.6 (10/11) Meds noted: Colace, Humulin -Change diet to cardiac carb consistent with Glucerna. -RD following.
[2018-12-23] MEDS ORDERED: COLACE100 MG PO (15:16)
[2018-12-23] MEDS ORDERED: ALDACTONE50 MG PO (15:20)
[2018-12-23] MEDS ORDERED: LIPITOR10 MG PO (15:20)
[2018-12-23] MEDS ORDERED: TOPROL XL25 MG PO (15:20)
--- NOTE | 2018-12-23 16:30 | NUR ---
DISCHARGE INSTRUCTIONS GIVEN. CVL REMOVED. WHEELED TO VEHICLE.
--- NOTE | 2018-12-24 12:03 | MORECARE ---
CASE MANAGEMENT DISCHARGE SUMMARY PATIENT: EMANI GARCIA UNIT: [id number] ADM DATE: 12/19/18 AGE: 68 : 51 SEX: M ROOM/BED: D[facility] AUTHOR: DALTON CASON PHYSICIAN: REFERRING PHYSICIAN: MICHAEL FONTANEZ MD DATE OF SERVICE: 12/24/18 Discharge Plan Patient Name: EMANI GARCIA Facility: [facility]:[place] : 1950 Planned Disposition: Home Anticipated Discharge Date: Discharge Date: 12/23/2018 Expected LOS: Initial Reviewer: [email or web address] Initial Review Date: 12/19/2018 Generated: 12/24/18 1:03 pm DCP- Discharge Planning Updated by [email or web address]: Chelita Bautista on 12/19/18 4:[address] Patient Name: EMANI GARCIA Admission Status: Elective Accout number: [id number] Admission Date: 12-19-2018 : 1950 Admission Diagnosis: Attending: MICHAEL FONTANEZ Current LOS: 1 Anticipated DC Date: Planned Disposition: Home Primary Insurance: MEDICARE A & B Discharge Planning Comments: CM met with patient at bedside after explaining CM role and obtaining verbal consent. Patient lives at home with his Sulma where he is independent with his care and plans to return there upon discharge. Patient feels this would be a safe discharge. CM discussed availability / needs of home health and medical equipment. Patient denies any discharge needs at this time. Patient states he will have his family drive him home upon discharge. CM will continue to follow and assist as needed with discharge planning / needs. Chief Deputy Clerk/Bailiff: Chelita Bautista DCPIA - Discharge Planning Initial Assessment Updated by [email or web address]: Chelita Bautista on 12/19/18 5:32 pm * Is the patient Alert and Oriented? Yes * How many steps to enter\exit or inside your home? ramp * PCP Rosita Antonio * Pharmacy [facility] * Preadmission Environment Home with Family * ADLs Independent * Other Equipment w/c, walker, hospital bed, bsc, sc, scooter * List name and contact numbers for known caregivers / representatives who currently or will assist patient after discharge: Sulma Garcia - spouse - [phone] * Verbal permission to speak to the caregivers and representatives has been obtained from the patient. Yes * Community resources currently utilized None * Additional services required to return to the preadmission environment? No * Can the patient safely return to the preadmission environment? Yes * Has this patient been hospitalized within the prior 30 days at any hospital? Yes Coverage Notice Reviewer: [email or web address] Travis Bautista Notice Issued Date-Time: 12/23/2018 15:30 Notice Type: IM Discharge Notice Notice Delivered To: Patient Relationship to Patient: Self Wood Panel Inspector Name: Delivery Method: HAND - Hand Delivered Jessica Days: Prior Verbal Notification: Recipient Understood Notice: Yes Recipient Signature: Yes Med Rec Note Co-signed by Attending: Coverage Notice Comment: Last DP export: 12/19/18 4:47 p Patient Name: EMANI GARCIA Page [id number] at 1203 All edits/amendments must be made on the electronic document DICTATION DATE: 12/24/18 1203 MULTIPLE SLIDE OPERATOR: CHAPARRITA 12/24/18 1203 RPT#: [id number] DC DATE:12/23/18 STATUS: DIS IN [facility] [address] [place] [address] END OF REPORT
--- NOTE | 2018-12-26 13:30 | TEE ---
PATIENT:EMANI NICOLAS MEDICAL RECORD: [id number] LOCATION:[place] [address] AGE OF PATIENT: 68 ADMISSION DATE: 12/19/18 SEX: M REFERRING PHYSICIAN: INTERPRETING PHYSICIAN: MAGDALENO CADENA MD TRANSESOPHAGEAL ECHOCARDIOGRAM Date: 12/20/18 GREG CHARGE Y INDICATIONS: ASSESSF FOR PERICARDIAL EFFUSION, PRE LVAT PATIENT IS POST CABG PREMEDICATIONS: PATIENT'S RESPONSE PROCEDURE DOPPLER MEASUREMENTS: LVIT LA 3.5 PA RA LVOT RVOT Asc. Ao AV Gradient Peak AV Mean AV Area MV Gradient Peak MV Mean MV Area INTERPRETATION: Doppler: 2-D: LVD. 4.5 LVS. 3.0 COLOR FLOW DOPPLER TRACE AI NORMAL SALINE STUDY: MISCELLANOUS: DIAGNOSIS: PLAN: Rug Cleaner Hand:1 Dr. Cadena Associate Pastor: Nick NAILS COMMENTS: PATIENT OF ESTEE WEBBER DATE OF SERVICE: 12/20/2018 PROCEDURE: Transesophageal echo evaluation for pericardial effusion. FINDINGS: 1. Left ventricular chamber size is within normal limits. Left ventricular systolic function is normal at 55%. 2. Left atrium, right atrium, and right ventricular chamber sizes are within TRANSESOPHAGEAL ECHOCARDIOGRAM REPORT [id number] EMANI NICOLAS normal limits. 3. Valvular structures have normal structure and motion. 4. Doppler interrogation only reveals trace aortic insufficiency. No other valvular insufficiency or stenosis. 5. No evidence of pericardial effusion or left ventricular thrombus. TRANSINT:[id number] Voice Confirmation ID: [id number] DOCUMENT ID: [id number] at 1330 CC: [id number] DICTATION DATE: 12/24/18 1150 SHADING PAINTER: 12/25/18 0622 DIS IN 12/23/18 [facility] [address] [place] [address]
== END 2018-12-23 16:30 | disposition home or self-care (01) | DRG 187 ==
LOC: D.CT 11:47 → D.CVICU 13:25
PROVIDERS: ADMIT Thoracic Surgery (Cardiothoracic Vascular Surgery); ATTEND Thoracic Surgery (Cardiothoracic Vascular Surgery)
PROC: 3E0L4GC Introduction of Other Therapeutic Substance into Pleural Cavity, Percutaneous Endoscopic Approach (ICD-10-PCS; principal; 2018-12-20 07:30)
DX: J90 Pleural effusion, not elsewhere classified (principal); I25.810 Atherosclerosis of coronary artery bypass graft(s) without angina pectoris; I97.0 Postcardiotomy syndrome; Z98.61 Coronary angioplasty status

== ENCOUNTER → 2019-01-01 09:27 | Outpatient (CLI) | payer MEDICARE, OTHER ==
[2018-12-20 14:26] VITALS: BMI 25.4
[~2019-01-01 09:27] MED LIST changes: +ALDACTONE50 MG PO; +HYDROCODON-ACE1 EAC7 PO
== END | disposition home or self-care (01) ==
LOC: D.RAD 09:27
PROVIDERS: ATTEND Thoracic Surgery (Cardiothoracic Vascular Surgery)
DX: J90 Pleural effusion, not elsewhere classified (principal)

== ENCOUNTER → 2019-02-05 12:46 | Outpatient (CLI) | payer MEDICARE, OTHER ==
[2018-12-20 14:26] VITALS: BMI 25.4
== END | disposition home or self-care (01) ==
LOC: D.RAD 12:46
PROVIDERS: ATTEND Thoracic Surgery (Cardiothoracic Vascular Surgery)
DX: Z09 Encounter for follow-up examination after completed treatment for conditions other than malignant neoplasm (principal)